=== PATIENT | female | born 1960 | race Caucasian/White ===

== ENCOUNTER → 2017-06-10 | Outpatient (CLI) | payer OTHER ==
[~2017-06-10] MED LIST: DEXA2TAB PO; DULO30CA2 PO; ERGO500017 PO; ESOM40CA PO; EXEN2VIA SQ; GABA300C10 PO; IBAN150T PO; INSU100C5 SQ-INSULIN; INSU300I SQ; LEVO50TA5 PO; NYST1000 PO; OXYC1TAB8 PO; OXYC5TAB3 PO; PAZO200T PO; PRAV80TA2 PO; PROC10TA78 PO
== END | disposition home or self-care (01) ==
LOC: CFH 11:14
PROVIDERS: ATTEND Internal Medicine Hematology & Oncology
DX: C64.9 Malignant neoplasm of unspecified kidney, except renal pelvis (principal)

== ENCOUNTER 2017-07-04 15:39 | Inpatient (IN) | payer OTHER ==
[~2017-07-04] VITALS: Ht 162.6 cm; Wt 61.0 kg
[2017-07-04] MEDS ORDERED: SODIUM CHLORIDE 0.9% 1,000 ML IV ONE (16:33)
[2017-07-04] MEDS ORDERED: SODIUM CHLORIDE 0.9% 1,000ML IVBOLUS ONE (17:00)
[2017-07-04] MEDS ORDERED: SODIUM CHLORIDE FLUSH 10ML SYR IVF ONE (17:00)
[2017-07-04 17:09] LABS: BASOPHILS # (AUTO) 0.03 x10^3/uL (0-0.1); BASOPHILS % (AUTO) 0 % (0-1); EOSINOPHILS # (AUTO) 0.19 x10^3/uL (0-0.4); EOSINOPHILS % (AUTO) 2 % (1-7); LYMPHOCYTES # (AUTO) 2.15 x10^3/uL (1-3.4); LYMPHOCYTES % (AUTO) 27 % (22-44); MD NO; MEAN CORPUSCULAR HEMOGLOBIN 27.8 pg (27.0-34.8); MEAN CORPUSCULAR HGB CONC 32.7 g/dL (32.4-35.8); MEAN CORPUSCULAR VOLUME 84.9 fL (80-100); MEAN PLATELET VOLUME 8.5 fL (7.4-10.4); MONOCYTES # (AUTO) 0.41 x10^3/uL (0.2-0.8); MONOCYTES % (AUTO) 5 % (2-9); NEUTROPHILS # (AUTO) 5.18 x10^3/uL (1.8-6.8); NEUTROPHILS % (AUTO) 65 % (42-75); PLATELET COUNT 232 x10^3/uL (130-400); RED BLOOD COUNT 5.63 x10^6/uL (3.82-5.3); RED CELL DISTRIBUTION WIDTH 19.5 % (9.6-15.2)
[2017-07-04 17:11] LABS: ALBUMIN 2.9 g/dL (3.4-5.0); ANION GAP 9 mmol/L (5-15); CALCIUM 8.6 mg/dL (8.5-10.1); CHLORIDE 106 mmol/L (98-107)
[2017-07-04 17:14] LABS: ALANINE AMINOTRANSFERASE 22 U/L (12-78); ALKALINE PHOSPHATASE 84 U/L (45-117); BILIRUBIN,TOTAL 0.5 mg/dL (0.2-1.0); CREATININE 0.77 mg/dL (0.55-1.02); TOTAL PROTEIN 7.4 g/dL (6.4-8.2)
[2017-07-04] MEDS ORDERED: POTASSIUM CHLORIDE 40 MEQ in SODIUM CHLORIDE 0.9% 1,000 ML IV ONE (17:21)
[2017-07-04] MEDS ORDERED: POTASSIUM CHLORIDE 20 MEQ TAB.ER.PRT PO ONE (17:30)
[2017-07-04] MEDS ORDERED: NS + 40MEQ KCL 1,000 ML IV ONE (17:31)
[2017-07-04] MEDS ORDERED: POTASSIUM CHLORIDE 20 MEQ TAB.ER.PRT ONE (17:31)
[2017-07-04 18:42] LABS: CLOSTRIDIUM DIFFICILE ANTIGEN NEGATIVE; CLOSTRIDIUM DIFFICILE TOXIN NEGATIVE (Negative)
[2017-07-04] MEDS ORDERED: OMNIPAQUE 350 MG/ML, 100ML BOTTLE ONE (19:14)
[2017-07-04] MEDS ORDERED: ACETAMINOPHEN 500 MG TABLET ONE (20:02)
[2017-07-04] MEDS ORDERED: POTASSIUM CHLORIDE 20 MEQ in SODIUM CHLORIDE 0.9% 1,000 ML IV ONE (20:26)
[2017-07-04] MEDS ORDERED: SODIUM CHLORIDE FLUSH 10ML SYR IVF PRN (20:30)
[2017-07-04] MEDS ORDERED: SORA200T PO (20:53)
[2017-07-04] MEDS ORDERED: OXYC10TA6 PO (20:53)
[2017-07-04] MEDS ORDERED: DIPH1TAB6 PO (20:53)
[2017-07-04] MEDS ORDERED: HYDR10TA4 PO (20:53)
[2017-07-04] MEDS ORDERED: ALBU2.5V11 NEB (20:53)
[2017-07-04] MEDS ORDERED: PRAV80TA2 PO (20:53)
[2017-07-04 21:31] VITALS: BP 170/84
[2017-07-04] MEDS ORDERED: SIMVASTATIN 40 MG TABLET PO SCH (22:00)
[2017-07-04] MEDS ORDERED: PROCHLORPERAZINE 10MG TABLET PO SCH (22:00)
[2017-07-04] MEDS ORDERED: NICOTINE 21 MG/24 HR PATCH.TD24 TD SCH (22:00)
[2017-07-04] MEDS ORDERED: ONDANSETRON 2MG/ML, 2ML IVPush PRN (22:00)
[2017-07-04] MEDS ORDERED: hydrOXyzine 10MG TABLET PO SCH (22:00)
[2017-07-04] MEDS ORDERED: DULOXETINE 30 MG CAPSULE.DR PO SCH (22:00)
[2017-07-04] MEDS ORDERED: ENOXAPARIN 40 MG/0.4 ML SQ SCH (22:00)
[2017-07-04] MEDS: NS + 20MEQ KCL 1,000 ML IV SCH (22:27)
[2017-07-04] MEDS ORDERED: PROCHLORPERAZINE MC SCH (22:30)
[2017-07-04] MEDS ORDERED: OXYcodone IR 5MG TABLET PO SCH (22:30)
[2017-07-04 22:48] LABS: MICROSCOPIC AUTO
[2017-07-04] MEDS: INSULIN LISPRO 100 UNITS/ML, PEN SQ-INSULIN SCH (22:49)
[2017-07-04] MEDS ORDERED: COMPAZINE MC SCH (23:00)
[2017-07-04] MEDS: GABAPENTIN 300 MG CAPSULE PO SCH (23:02)
[2017-07-04] MEDS: OCTREOTIDE 100MCG/ML, 1ML (0.1MG/ML) SQ SCH (23:02)
[2017-07-04 23:06] LABS: CULTURE INDICATED? YES
[2017-07-05] MEDS ORDERED: PROCHLORPERAZINE 10MG TABLET PO PRN
[2017-07-05 01:47] VITALS: BP 154/78
[2017-07-05 04:45] LABS: ANION GAP 6 mmol/L (5-15); BASOPHILS # (AUTO) 0.05 x10^3/uL (0-0.1); BASOPHILS % (AUTO) 1 % (0-1); CALCIUM 7.9 mg/dL (8.5-10.1); CHLORIDE 116 mmol/L (98-107); CREATININE 0.76 mg/dL (0.55-1.02); EOSINOPHILS # (AUTO) 0.19 x10^3/uL (0-0.4); EOSINOPHILS % (AUTO) 2 % (1-7); LYMPHOCYTES # (AUTO) 2.84 x10^3/uL (1-3.4); LYMPHOCYTES % (AUTO) 35 % (22-44); MD NO; MEAN CORPUSCULAR HEMOGLOBIN 28.4 pg (27.0-34.8); MEAN CORPUSCULAR HGB CONC 32.7 g/dL (32.4-35.8); MEAN CORPUSCULAR VOLUME 86.6 fL (80-100); MEAN PLATELET VOLUME 8.6 fL (7.4-10.4); MONOCYTES # (AUTO) 0.38 x10^3/uL (0.2-0.8); MONOCYTES % (AUTO) 5 % (2-9); NEUTROPHILS # (AUTO) 4.72 x10^3/uL (1.8-6.8); NEUTROPHILS % (AUTO) 58 % (42-75); PLATELET COUNT 216 x10^3/uL (130-400); RED BLOOD COUNT 5.45 x10^6/uL (3.82-5.3); RED CELL DISTRIBUTION WIDTH 19.1 % (9.6-15.2)
[2017-07-05] MEDS ORDERED: LEVOTHYROXINE 50 MCG TABLET PO SCH (06:00)
[2017-07-05] MEDS ORDERED: PANTOPROZOLE 40MG TABLET PO SCH (07:30)
[2017-07-05] MEDS ORDERED: MAGNESIUM SULFATE PMX 4GM/100M 100 ML IV ONE (07:30)
[2017-07-05] MEDS ORDERED: OXYcodone IR 5MG TABLET ONE (07:36)
[2017-07-05] MEDS: GABAPENTIN 300 MG CAPSULE PO SCH (07:39)
[2017-07-05] MEDS: INSULIN LISPRO 100 UNITS/ML, PEN SQ-INSULIN SCH ×2 (08:09→12:12)
[2017-07-05] MEDS: NS + 20MEQ KCL 1,000 ML IV SCH ×2 (08:19→13:35)
[2017-07-05] MEDS ORDERED: DIPHENOXYLATE/ATROPINE TABLET PO SCH (09:00)
[2017-07-05] MEDS ORDERED: OXYcodone IR 5MG TABLET PO SCH ×2 (09:00→13:30)
[2017-07-05 09:01] VITALS: BP 154/79
[2017-07-05] MEDS ORDERED: POTA20TA14 PO (09:17)
[2017-07-05] MEDS ORDERED: OCTR100V SQ (09:17)
[2017-07-05] MEDS ORDERED: MAGN400T26 PO (09:17)
[2017-07-05] MEDS: OCTREOTIDE 100MCG/ML, 1ML (0.1MG/ML) SQ SCH ×2 (09:57→15:22)
[2017-07-05 14:15] VITALS: BP 128/69
== END 2017-07-05 15:30 | disposition home or self-care (01) | DRG 392 ==
LOC: ED 18:21 → EDIP 20:27 → 3NW 21:08
PROVIDERS: ADMIT Internal Medicine; ATTEND Internal Medicine
DX: K52.9 Noninfective gastroenteritis and colitis, unspecified (principal); E87.2 Acidosis; E44.0 Moderate protein-calorie malnutrition; C64.9 Malignant neoplasm of unspecified kidney, except renal pelvis; E83.42 Hypomagnesemia; N39.0 Urinary tract infection, site not specified; I11.9 Hypertensive heart disease without heart failure; E03.9 Hypothyroidism, unspecified; E11.9 Type 2 diabetes mellitus without complications; E87.6 Hypokalemia; F17.210 Nicotine dependence, cigarettes, uncomplicated; I16.0 Hypertensive urgency; J44.9 Chronic obstructive pulmonary disease, unspecified; K21.9 Gastro-esophageal reflux disease without esophagitis; Z79.4 Long term (current) use of insulin; Z82.5 Family history of asthma and other chronic lower respiratory diseases; Z83.3 Family history of diabetes mellitus; Z85.528 Personal history of other malignant neoplasm of kidney; Z90.710 Acquired absence of both cervix and uterus; Z68.23 Body mass index [BMI] 23.0-23.9, adult
CPT/HCPCS: 36415; 74177; 80048; 80053; 81001; 82962; 83605; 83690; 83735; 84132; 85025; 87040; 87077; 87086; 87186; 87324; 89055; 99285; J1650; J2354; J3480; Q9967; J1815; J3475; J7030

== ENCOUNTER 2017-07-07 11:50 | Inpatient (IN) | payer OTHER ==
[~2017-07-07] VITALS: Ht 162.6 cm; Wt 62.1 kg
[~2017-07-07 11:50] MED LIST changes: +ALBU2.5V11 NEB; +DIPH1TAB6 PO; +HYDR10TA4 PO; +MAGN400T26 PO; +OCTR100V SQ; +OXYC10TA6 PO; +POTA20TA14 PO; +SORA200T PO
[2017-07-07] MEDS ORDERED: SODIUM CHLORIDE 0.9% 1,000 ML IV ONE ×2 (12:21→14:24)
[2017-07-07] MEDS ORDERED: ACETAMINOPHEN 325 MG TABLET PO ONE (12:30)
[2017-07-07] MEDS ORDERED: SODIUM CHLORIDE 0.9% 1,000ML IVBOLUS ONE ×2 (12:30)
[2017-07-07] MEDS ORDERED: SODIUM CHLORIDE FLUSH 10ML SYR IVF ONE (12:30)
[2017-07-07] MEDS ORDERED: ACETAMINOPHEN 325 MG TABLET ONE (12:34)
[2017-07-07 13:00] LABS: RAPID INFLUENZA A Negative (Negative); RAPID INFLUENZA B Negative (Negative)
[2017-07-07 13:06] LABS: MEAN CORPUSCULAR HGB CONC 32.7 g/dL (32.4-35.8); MEAN CORPUSCULAR VOLUME 85.8 fL (80-100); MEAN PLATELET VOLUME 8.5 fL (7.4-10.4); PLATELET COUNT 226 x10^3/uL (130-400); RED BLOOD COUNT 5.57 x10^6/uL (3.82-5.3); RED CELL DISTRIBUTION WIDTH 18.5 % (9.6-15.2)
[2017-07-07 13:13] LABS: ALBUMIN 2.8 g/dL (3.4-5.0); ANION GAP 10 mmol/L (5-15); CALCIUM 8.7 mg/dL (8.5-10.1); CHLORIDE 104 mmol/L (98-107)
[2017-07-07 13:16] LABS: ALANINE AMINOTRANSFERASE 17 U/L (12-78); CREATININE 0.84 mg/dL (0.55-1.02)
[2017-07-07 13:18] LABS: ALKALINE PHOSPHATASE 83 U/L (45-117); BILIRUBIN,TOTAL 0.7 mg/dL (0.2-1.0); TOTAL PROTEIN 7.2 g/dL (6.4-8.2)
[2017-07-07 13:23] LABS: MD YES
[2017-07-07 13:24] LABS: BAND#(MANUAL) 0.49 x10^3/uL; BANDS%(MANUAL) 4 % (0-7); MONOS#(MANUAL) 0.37 x10^3/uL (0.3-2.7); MONOS% (MANUAL) 3 % (2-9)
[2017-07-07 13:25] LABS: ANISOCYTOSIS 1+; LYMPH#(MANUAL) 1.46 x10^3/uL (1-3.4); LYMPHS% (MANUAL) 12 % (22-44); SEG#(MANUAL) 9.88 x10^3/uL (1.8-6.8); SEGS% (MANUAL) 81 % (42-75)
[2017-07-07 13:26] LABS: <PLATELET ESTIMATE> ADEQUATE; <PLT MORPHOLOGY> NORMAL PLT MORPH
[2017-07-07] MEDS ORDERED: CEFTRIAXONE PMX 1GM/50ML 50 ML IVPB ONE (14:00)
[2017-07-07] MEDS ORDERED: AZITHROMYCIN 500 MG in SODIUM CHLORIDE 0.9% 250 ML IVPB ONE (14:00)
[2017-07-07] MEDS: SODIUM CHLORIDE 0.9% 1,000 ML IV SCH ×2 (14:29→23:10)
[2017-07-07] MEDS ORDERED: LABETALOL 5MG/ML, 20ML IVPush PRN (14:30)
[2017-07-07] MEDS ORDERED: ENALAPRILAT 1.25 MG/ML, 2ML IVPush PRN (14:30)
[2017-07-07] MEDS ORDERED: SODIUM CHLORIDE FLUSH 10ML SYR IVF PRN (14:30)
[2017-07-07] MEDS ORDERED: ACETAMINOPHEN 325 MG TABLET PO PRN (14:30)
[2017-07-07] MEDS ORDERED: ONDANSETRON 2MG/ML, 2ML IVPush PRN (14:30)
[2017-07-07] MEDS ORDERED: ONDANSETRON ODT 4 MG PO PRN (14:30)
[2017-07-07] MEDS ORDERED: GUAIFENESIN/DM 200-20MG, 10ML UDC PO PRN (14:30)
[2017-07-07 15:14] LABS: MEAN CORPUSCULAR HGB CONC 32.7 g/dL (32.4-35.8); MEAN CORPUSCULAR VOLUME 85.7 fL (80-100); MEAN PLATELET VOLUME 8.1 fL (7.4-10.4); PLATELET COUNT 213 x10^3/uL (130-400); RED BLOOD COUNT 5.32 x10^6/uL (3.82-5.3); RED CELL DISTRIBUTION WIDTH 18.2 % (9.6-15.2)
[2017-07-07 15:50] LABS: MD YES
[2017-07-07 15:52] LABS: <PLATELET ESTIMATE> ADEQUATE; <PLT MORPHOLOGY> NORMAL PLT MORPH; ANISOCYTOSIS 1+; BANDS%(MANUAL) 5 % (0-7); LYMPH#(MANUAL) 0.84 x10^3/uL (1-3.4); LYMPHS% (MANUAL) 6 % (22-44); MONOS#(MANUAL) 0.42 x10^3/uL (0.3-2.7); MONOS% (MANUAL) 3 % (2-9); SEG#(MANUAL) 12.04 x10^3/uL (1.8-6.8); SEGS% (MANUAL) 86 % (42-75)
[2017-07-07 16:11] VITALS: BP 110/65
[2017-07-07] MEDS: OXYcodone IR 5MG TABLET PO SCH (16:21)
[2017-07-07] MEDS: NICOTINE 14MG/24 HR PATCH.TD24 TD SCH (16:21)
[2017-07-07] MEDS: HEPARIN 5,000 UNITS/ML, 1ML SQ SCH ×2 (16:21→23:10)
[2017-07-07] MEDS: GABAPENTIN 300 MG CAPSULE PO SCH ×2 (16:21→20:10)
[2017-07-07] MEDS: INSULIN LISPRO 100 UNITS/ML, PEN SQ-INSULIN SCH ×2 (16:24→20:58)
[2017-07-07] MEDS: CEFTRIAXONE PMX 1GM/50ML 50 ML IV SCH (17:16)
[2017-07-07] MEDS: AZITHROMYCIN 500 MG in SODIUM CHLORIDE 0.9% 250 ML IV SCH (18:15)
[2017-07-07 19:36] VITALS: BP 124/72
[2017-07-07] MEDS: PRAVASTATIN 40 MG TABLET PO SCH (20:10)
[2017-07-07] MEDS: DULOXETINE 30 MG CAPSULE.DR PO SCH (20:10)
[2017-07-08 01:37] VITALS: BP 120/62
[2017-07-08 04:42] LABS: HEMOGLOBIN A1C 6.4 % (4.2-6.3)
[2017-07-08 05:03] LABS: ANION GAP 7 mmol/L (5-15); CALCIUM 7.9 mg/dL (8.5-10.1); CHLORIDE 113 mmol/L (98-107)
[2017-07-08] MEDS ORDERED: MAGNESIUM SULFATE PMX 2GM/50ML 50 ML IV ONE (07:00)
[2017-07-08] MEDS: INSULIN LISPRO 100 UNITS/ML, PEN SQ-INSULIN SCH ×4 (07:00→20:23)
[2017-07-08 08:30] VITALS: BP 127/72
[2017-07-08] MEDS: SODIUM CHLORIDE 0.9% 1,000 ML IV SCH (09:13)
[2017-07-08] MEDS: POTASSIUM CHLORIDE 20 MEQ TAB.ER.PRT PO SCH ×2 (09:13→16:52)
[2017-07-08] MEDS: HEPARIN 5,000 UNITS/ML, 1ML SQ SCH ×2 (09:14→16:52)
[2017-07-08] MEDS: LEVOTHYROXINE 50 MCG TABLET PO SCH (09:14)
[2017-07-08] MEDS: hydrOXyzine 10MG TABLET PO SCH (09:14)
[2017-07-08] MEDS: MAGNESIUM OXIDE 400 MG TABLET PO SCH (09:14)
[2017-07-08] MEDS: GABAPENTIN 300 MG CAPSULE PO SCH ×3 (09:14→20:22)
[2017-07-08] MEDS: OXYcodone IR 5MG TABLET PO SCH ×2 (09:15→17:01)
[2017-07-08] MEDS: ALBUTEROL SULFATE 2.5 MG/3 ML NPPB PRN (09:58)
[2017-07-08] MEDS ORDERED: AZITHROMYCIN 500 MG in SODIUM CHLORIDE 0.9% 250 ML IV SCH (12:00)
[2017-07-08] MEDS ORDERED: CEFTRIAXONE PMX 1GM/50ML 50 ML IV SCH (12:00)
[2017-07-08] MEDS: NICOTINE 14MG/24 HR PATCH.TD24 TD SCH (14:07)
[2017-07-08 14:30] VITALS: BP 101/57
[2017-07-08] MEDS: CEFTRIAXONE PMX 1GM/50ML 50 ML IV SCH (16:53)
[2017-07-08] MEDS: AZITHROMYCIN 500 MG in SODIUM CHLORIDE 0.9% 250 ML IV SCH (18:13)
[2017-07-08 20:08] VITALS: BP 112/62
[2017-07-08] MEDS: GUAIFENESIN ER 600 MG TABLET PO SCH (20:22)
[2017-07-08] MEDS: PRAVASTATIN 40 MG TABLET PO SCH (20:22)
[2017-07-08] MEDS: DULOXETINE 30 MG CAPSULE.DR PO SCH (20:23)
[2017-07-09 00:07] VITALS: BP 102/61
[2017-07-09] MEDS: HEPARIN 5,000 UNITS/ML, 1ML SQ SCH ×4 (00:14→23:19)
[2017-07-09] MEDS: OXYcodone IR 5MG TABLET PO SCH ×4 (00:18→22:00)
[2017-07-09 04:53] LABS: ANION GAP 6 mmol/L (5-15); CALCIUM 8.6 mg/dL (8.5-10.1); CHLORIDE 111 mmol/L (98-107)
[2017-07-09 04:54] LABS: CREATININE 0.78 mg/dL (0.55-1.02)
[2017-07-09 04:59] LABS: BASOPHILS # (AUTO) 0.04 x10^3/uL (0-0.1); BASOPHILS % (AUTO) 1 % (0-1); EOSINOPHILS # (AUTO) 0.22 x10^3/uL (0-0.4); EOSINOPHILS % (AUTO) 3 % (1-7); LYMPHOCYTES # (AUTO) 2.42 x10^3/uL (1-3.4); LYMPHOCYTES % (AUTO) 29 % (22-44); MD NO; MEAN CORPUSCULAR HEMOGLOBIN 28.4 pg (27.0-34.8); MEAN CORPUSCULAR HGB CONC 32.8 g/dL (32.4-35.8); MEAN CORPUSCULAR VOLUME 86.8 fL (80-100); MEAN PLATELET VOLUME 8.6 fL (7.4-10.4); MONOCYTES # (AUTO) 0.31 x10^3/uL (0.2-0.8); MONOCYTES % (AUTO) 4 % (2-9); NEUTROPHILS # (AUTO) 5.32 x10^3/uL (1.8-6.8); NEUTROPHILS % (AUTO) 64 % (42-75); PLATELET COUNT 209 x10^3/uL (130-400); RED BLOOD COUNT 4.43 x10^6/uL (3.82-5.3); RED CELL DISTRIBUTION WIDTH 19.1 % (9.6-15.2)
[2017-07-09] MEDS: INSULIN LISPRO 100 UNITS/ML, PEN SQ-INSULIN SCH ×4 (07:00→20:20)
[2017-07-09 08:30] VITALS: BP 101/62
[2017-07-09] MEDS: hydrOXyzine 10MG TABLET PO SCH (09:20)
[2017-07-09] MEDS: GUAIFENESIN ER 600 MG TABLET PO SCH ×2 (09:20→20:20)
[2017-07-09] MEDS: MAGNESIUM OXIDE 400 MG TABLET PO SCH (09:20)
[2017-07-09] MEDS: GABAPENTIN 300 MG CAPSULE PO SCH ×3 (09:20→20:20)
[2017-07-09] MEDS: POTASSIUM CHLORIDE 20 MEQ TAB.ER.PRT PO SCH ×2 (09:20→17:00)
[2017-07-09] MEDS: LEVOTHYROXINE 50 MCG TABLET PO SCH (09:21)
[2017-07-09] MEDS: predniSONE 50MG TABLET PO SCH (13:37)
[2017-07-09] MEDS: NICOTINE 14MG/24 HR PATCH.TD24 TD SCH (13:37)
[2017-07-09] MEDS ORDERED: CEFTRIAXONE PMX 1GM/50ML 50 ML IV SCH (14:00)
[2017-07-09 14:30] VITALS: BP 110/70
[2017-07-09] MEDS ORDERED: POTASSIUM CHLORIDE 20 MEQ TAB.ER.PRT PO ONE (14:30)
[2017-07-09] MEDS ORDERED: CEFTRIAXONE PMX 2GM/50ML 50 ML IV SCH (14:30)
[2017-07-09] MEDS ORDERED: CEFTRIAXONE PMX 1GM/50ML 50 ML IV ONE (15:00)
[2017-07-09] MEDS: ALBUTEROL SULFATE 2.5 MG/3 ML NPPB PRN (17:23)
[2017-07-09] MEDS: AZITHROMYCIN 500 MG in SODIUM CHLORIDE 0.9% 250 ML IV SCH (17:41)
[2017-07-09 19:57] VITALS: BP 110/67
[2017-07-09] MEDS: DULOXETINE 30 MG CAPSULE.DR PO SCH (20:20)
[2017-07-09] MEDS: PRAVASTATIN 40 MG TABLET PO SCH (20:20)
[2017-07-10 03:29] VITALS: BP 113/70
[2017-07-10 04:29] LABS: BASOPHILS # (AUTO) 0.01 x10^3/uL (0-0.1); BASOPHILS % (AUTO) 0 % (0-1); EOSINOPHILS % (AUTO) 0 % (1-7); LYMPHOCYTES # (AUTO) 0.94 x10^3/uL (1-3.4); LYMPHOCYTES % (AUTO) 17 % (22-44); MD NO; MEAN CORPUSCULAR HEMOGLOBIN 27.5 pg (27.0-34.8); MEAN CORPUSCULAR HGB CONC 31.9 g/dL (32.4-35.8); MEAN CORPUSCULAR VOLUME 86.3 fL (80-100); MONOCYTES # (AUTO) 0.21 x10^3/uL (0.2-0.8); MONOCYTES % (AUTO) 4 % (2-9); NEUTROPHILS # (AUTO) 4.36 x10^3/uL (1.8-6.8); NEUTROPHILS % (AUTO) 79 % (42-75); PLATELET COUNT 219 x10^3/uL (130-400); RED BLOOD COUNT 4.64 x10^6/uL (3.82-5.3); RED CELL DISTRIBUTION WIDTH 18.9 % (9.6-15.2)
[2017-07-10 04:39] LABS: ALBUMIN 2.2 g/dL (3.4-5.0); ANION GAP 7 mmol/L (5-15); CALCIUM 8.8 mg/dL (8.5-10.1); CHLORIDE 113 mmol/L (98-107); CREATININE 0.88 mg/dL (0.55-1.02)
[2017-07-10] MEDS: LEVOTHYROXINE 50 MCG TABLET PO SCH (05:34)
[2017-07-10] MEDS: OXYcodone IR 5MG TABLET PO SCH ×3 (05:34→20:29)
[2017-07-10 07:28] VITALS: BP 135/65
[2017-07-10] MEDS: GUAIFENESIN ER 600 MG TABLET PO SCH ×2 (07:58→20:28)
[2017-07-10] MEDS: predniSONE 50MG TABLET PO SCH (07:58)
[2017-07-10] MEDS: GABAPENTIN 300 MG CAPSULE PO SCH ×3 (07:58→20:28)
[2017-07-10] MEDS: POTASSIUM CHLORIDE 20 MEQ TAB.ER.PRT PO SCH (07:58)
[2017-07-10] MEDS: hydrOXyzine 10MG TABLET PO SCH (07:58)
[2017-07-10] MEDS: MAGNESIUM OXIDE 400 MG TABLET PO SCH (07:58)
[2017-07-10] MEDS: HEPARIN 5,000 UNITS/ML, 1ML SQ SCH ×3 (07:58→23:45)
[2017-07-10] MEDS: INSULIN LISPRO 100 UNITS/ML, PEN SQ-INSULIN SCH ×5 (07:59→20:36)
[2017-07-10] MEDS ORDERED: SODIUM PHOSPHATE 30 MMOL in SODIUM CHLORIDE 0.9% 500 ML IV ONE (08:30)
[2017-07-10] MEDS ORDERED: SODIUM PHOSPHATE 4 MEQ/ML IV SCH (08:30)
[2017-07-10 13:27] VITALS: BP 117/64
[2017-07-10] MEDS: NICOTINE 14MG/24 HR PATCH.TD24 TD SCH (14:26)
[2017-07-10] MEDS ORDERED: CALCIUM CARBONATE 500 MG TAB.CHEW PO PRN (15:00)
[2017-07-10] MEDS: AZITHROMYCIN 500 MG in SODIUM CHLORIDE 0.9% 250 ML IV SCH (17:22)
[2017-07-10 19:33] VITALS: BP 121/64
[2017-07-10] MEDS: PRAVASTATIN 40 MG TABLET PO SCH (20:28)
[2017-07-10] MEDS: DULOXETINE 30 MG CAPSULE.DR PO SCH (20:28)
[2017-07-11] MEDS: OXYcodone IR 5MG TABLET PO SCH ×2 (02:39→08:58)
[2017-07-11 02:40] VITALS: BP 149/68
[2017-07-11 04:42] LABS: BASOPHILS # (AUTO) 0.03 x10^3/uL (0-0.1); BASOPHILS % (AUTO) 0 % (0-1); EOSINOPHILS # (AUTO) 0.01 x10^3/uL (0-0.4); EOSINOPHILS % (AUTO) 0 % (1-7); LYMPHOCYTES # (AUTO) 2.26 x10^3/uL (1-3.4); LYMPHOCYTES % (AUTO) 25 % (22-44); MD NO; MEAN CORPUSCULAR HGB CONC 32.5 g/dL (32.4-35.8); MEAN PLATELET VOLUME 8.9 fL (7.4-10.4); MONOCYTES # (AUTO) 0.43 x10^3/uL (0.2-0.8); MONOCYTES % (AUTO) 5 % (2-9); NEUTROPHILS # (AUTO) 6.33 x10^3/uL (1.8-6.8); NEUTROPHILS % (AUTO) 70 % (42-75); PLATELET COUNT 248 x10^3/uL (130-400); RED BLOOD COUNT 4.64 x10^6/uL (3.82-5.3); RED CELL DISTRIBUTION WIDTH 18.6 % (9.6-15.2)
[2017-07-11 04:56] LABS: CALCIUM 9.4 mg/dL (8.5-10.1); CHLORIDE 109 mmol/L (98-107)
[2017-07-11 05:04] LABS: ALANINE AMINOTRANSFERASE 23 U/L (12-78); ALBUMIN 2.3 g/dL (3.4-5.0); ALKALINE PHOSPHATASE 88 U/L (45-117); ANION GAP 7 mmol/L (5-15); BILIRUBIN,TOTAL 0.2 mg/dL (0.2-1.0); CREATININE 0.72 mg/dL (0.55-1.02); TOTAL PROTEIN 6.2 g/dL (6.4-8.2)
[2017-07-11] MEDS: LEVOTHYROXINE 50 MCG TABLET PO SCH (06:51)
[2017-07-11] MEDS: INSULIN LISPRO 100 UNITS/ML, PEN SQ-INSULIN SCH ×2 (07:00→11:06)
[2017-07-11 07:45] VITALS: BP 147/75
[2017-07-11] MEDS: MAGNESIUM OXIDE 400 MG TABLET PO SCH (07:50)
[2017-07-11] MEDS: predniSONE 50MG TABLET PO SCH (07:50)
[2017-07-11] MEDS: hydrOXyzine 10MG TABLET PO SCH (07:50)
[2017-07-11] MEDS: GUAIFENESIN ER 600 MG TABLET PO SCH (07:51)
[2017-07-11] MEDS: GABAPENTIN 300 MG CAPSULE PO SCH (07:51)
[2017-07-11] MEDS: HEPARIN 5,000 UNITS/ML, 1ML SQ SCH (07:51)
[2017-07-11] MEDS ORDERED: DOXY100T PO (09:39)
[2017-07-11] MEDS ORDERED: CEFD300C37 PO (09:39)
[2017-07-11] MEDS ORDERED: PRED50TA PO (09:44)
[2017-07-11] MEDS ORDERED: PNEUMOCOCCAL 23 VACCINE IM-VACC ONE (11:00)
[2017-07-11] MEDS ORDERED: CEFTRIAXONE PMX 2GM/50ML 50 ML IV SCH (11:00)
== END 2017-07-11 13:25 | disposition home or self-care (01) | DRG 871 ==
LOC: ED 12:15 → EDIP 14:24 → 3NW 15:22
PROVIDERS: ADMIT Hospitalist; ATTEND Hospitalist
DX: A41.9 Sepsis, unspecified organism (principal); J15.9 Unspecified bacterial pneumonia; J96.91 Respiratory failure, unspecified with hypoxia; R65.21 Severe sepsis with septic shock; C79.51 Secondary malignant neoplasm of bone; E83.39 Other disorders of phosphorus metabolism; I11.9 Hypertensive heart disease without heart failure; F33.9 Major depressive disorder, recurrent, unspecified; J44.0 Chronic obstructive pulmonary disease with (acute) lower respiratory infection; E11.65 Type 2 diabetes mellitus with hyperglycemia; I48.2 Chronic atrial fibrillation; E83.42 Hypomagnesemia; M54.5 Low back pain; E03.9 Hypothyroidism, unspecified; E87.6 Hypokalemia; K21.9 Gastro-esophageal reflux disease without esophagitis; K52.9 Noninfective gastroenteritis and colitis, unspecified; Z79.4 Long term (current) use of insulin; Z82.5 Family history of asthma and other chronic lower respiratory diseases; Z83.3 Family history of diabetes mellitus; Z85.528 Personal history of other malignant neoplasm of kidney; Z90.5 Acquired absence of kidney; Z90.710 Acquired absence of both cervix and uterus; Z79.899 Other long term (current) drug therapy
CPT/HCPCS: 36415; 71045; 71046; 80048; 80053; 82040; 82962; 83036; 83605; 83735; 84100; 84145; 85025; 87040; 87070; 87077; 87184; 87205; 87400; 90732; 93005; 94640; 96360; 96361; J0456; J0696; J1644; J7613; J1815; J3475; J7030; J7040; J7050; J7512

== ENCOUNTER → 2017-08-19 | Outpatient (CLI) | payer OTHER ==
[~2017-08-19] MED LIST changes: +CEFD300C37 PO; +DOXY100T PO; +GADOBUTROL 7.5 MMOL/7.5 ML PFS ONE; +PRED50TA PO
== END | disposition home or self-care (01) ==
LOC: CFH 08:01
PROVIDERS: ATTEND Internal Medicine Hematology & Oncology
DX: C79.51 Secondary malignant neoplasm of bone (principal); C64.9 Malignant neoplasm of unspecified kidney, except renal pelvis; K52.9 Noninfective gastroenteritis and colitis, unspecified; J18.9 Pneumonia, unspecified organism; R15.9 Full incontinence of feces; E87.6 Hypokalemia
CPT/HCPCS: 71046; 72158; 74018; A9585

== ENCOUNTER → 2017-09-02 | Outpatient (CLI) | payer OTHER ==
[~2017-09-02] MED LIST changes: -GADOBUTROL 7.5 MMOL/7.5 ML PFS ONE
== END ==
LOC: ROC 08:32
PROVIDERS: ATTEND Radiology Radiation Oncology
DX: Z08 Encounter for follow-up examination after completed treatment for malignant neoplasm (principal); C79.51 Secondary malignant neoplasm of bone; Z85.528 Personal history of other malignant neoplasm of kidney; Z92.3 Personal history of irradiation; Z79.4 Long term (current) use of insulin
CPT/HCPCS: 99214; G0463

== ENCOUNTER → 2017-11-04 | Outpatient (CLI) | payer OTHER ==
[~2017-11-04] MED LIST changes: +ACID1TAB7 PO; +CEFT2PIG2 IV; +DEXA4TAB66 PO; +INSU100I11 SQ-INSULIN; +INSU100I13 SQ-INSULIN; +MORP15TA3 PO; +NICO-486 TD
== END | disposition home or self-care (01) ==
LOC: RAD 10:07
PROVIDERS: ATTEND Internal Medicine Hematology & Oncology
DX: I82.412 Acute embolism and thrombosis of left femoral vein (principal); C64.9 Malignant neoplasm of unspecified kidney, except renal pelvis
CPT/HCPCS: 93970

== ENCOUNTER 2017-11-22 12:51 | Inpatient (IN) | payer OTHER ==
[~2017-11-22] VITALS: Ht 162.6 cm; Wt 73.5 kg
[2017-11-22] MEDS ORDERED: MORPHINE SULFATE 4 MG/ML, 1ML ONE (13:35)
[2017-11-22] MEDS: MORPHINE SULFATE 4 MG/ML, 1ML IVPush PRN (13:44)
[2017-11-22 13:54] LABS: BASOPHILS # (AUTO) 0.03 x10^3/uL (0-0.1); BASOPHILS % (AUTO) 0 % (0-1); EOSINOPHILS # (AUTO) 0.08 x10^3/uL (0-0.4); EOSINOPHILS % (AUTO) 1 % (1-7); LYMPHOCYTES # (AUTO) 2.01 x10^3/uL (1-3.4); LYMPHOCYTES % (AUTO) 27 % (22-44); MD NO; MEAN CORPUSCULAR HEMOGLOBIN 29.7 pg (27.0-34.8); MEAN CORPUSCULAR HGB CONC 33.1 g/dL (32.4-35.8); MEAN CORPUSCULAR VOLUME 89.8 fL (80-100); MEAN PLATELET VOLUME 7.3 fL (7.4-10.4); MONOCYTES # (AUTO) 0.27 x10^3/uL (0.2-0.8); MONOCYTES % (AUTO) 4 % (2-9); NEUTROPHILS # (AUTO) 4.99 x10^3/uL (1.8-6.8); NEUTROPHILS % (AUTO) 68 % (42-75); PLATELET COUNT 272 x10^3/uL (130-400); RED BLOOD COUNT 5.25 x10^6/uL (3.82-5.3); RED CELL DISTRIBUTION WIDTH 19.3 % (9.6-15.2)
[2017-11-22 14:01] LABS: ANION GAP 9 mmol/L (5-15); CALCIUM 8.6 mg/dL (8.5-10.1); CHLORIDE 108 mmol/L (98-107); CREATININE 0.63 mg/dL (0.55-1.02); INTERNATIONAL NORMALIZED RATIO 1.11 (0.93-1.1); PROTHROMBIN TIME 11.4 Seconds (9.6-11.5)
[2017-11-22] MEDS ORDERED: SODIUM CHLORIDE FLUSH 10ML SYR IVF ONE (14:30)
[2017-11-22] MEDS ORDERED: INSU100C5 SQ-INSULIN (14:54)
[2017-11-22] MEDS ORDERED: OXYC10TA6 PO (14:57)
[2017-11-22] MEDS ORDERED: RIVA15TA PO (14:57)
[2017-11-22] MEDS ORDERED: OMEP40CA6 PO (14:57)
[2017-11-22 15:56] VITALS: BP 135/87
[2017-11-22] MEDS ORDERED: HEPARIN 5,000 UNITS/ML, 1ML SQ SCH (16:00)
[2017-11-22] MEDS ORDERED: ONDANSETRON 2MG/ML, 2ML IVPush PRN (16:00)
[2017-11-22] MEDS ORDERED: ONDANSETRON ODT 4 MG PO PRN (16:00)
[2017-11-22] MEDS ORDERED: LABETALOL 5MG/ML, 20ML IVPush PRN (16:00)
[2017-11-22] MEDS ORDERED: HEPARIN 25,000 UNITS/500ML PMX 500 ML IV PRN ×2 (16:00→16:30)
[2017-11-22] MEDS ORDERED: HEPARIN 5,000 UNITS/ML, 1ML IV PRN ×2 (16:30→18:00)
[2017-11-22] MEDS ORDERED: HEPARIN 5,000 UNITS/ML, 1ML IV ONE ×2 (16:30→18:00)
[2017-11-22] MEDS: GABAPENTIN 300 MG CAPSULE PO SCH ×2 (16:53→22:22)
[2017-11-22 17:00] VITALS: BP 135/87
[2017-11-22] MEDS ORDERED: ALBUTEROL SULFATE 2.5 MG/3 ML NPPB PRN (17:00)
[2017-11-22 17:10] LABS: FREE T4 (FREE THYROXINE) 1.15 ng/dL (0.76-1.46)
[2017-11-22] MEDS ORDERED: D5%-0.45% NACL 1,000 ML IV SCH (17:30)
[2017-11-22] MEDS: HEPARIN 25,000 UNITS/500ML PMX 500 ML IV PRN (18:25)
[2017-11-22 19:39] VITALS: BP 108/72
[2017-11-22] MEDS ORDERED: TEMPLATE NON-FORMULARY MED. (Oxycodone Hcl** 10 MG) PO SCH (21:00)
[2017-11-22] MEDS ORDERED: INSULIN GLARGINE 100 UNITS/ML, PEN SQ-INSULIN SCH (21:00)
[2017-11-22] MEDS ORDERED: RIVAROXABAN 15 MG TABLET PO SCH (21:00)
[2017-11-22] MEDS: DULOXETINE 30 MG CAPSULE.DR PO SCH (22:21)
[2017-11-22] MEDS: INSULIN GLARGINE 100 UNITS/ML, PEN SQ-INSULIN SCH (22:21)
[2017-11-22] MEDS: SIMVASTATIN 40 MG TABLET PO SCH (22:22)
[2017-11-23] MEDS: MORPHINE SULFATE 4 MG/ML, 1ML IVPush PRN ×2 (00:02→09:25)
[2017-11-23 00:22] LABS: HEMOGLOBIN A1C 9.8 % (4.2-6.3)
[2017-11-23 02:00] VITALS: BP 111/75
[2017-11-23 05:18] LABS: MICROSCOPIC AUTO
[2017-11-23 05:19] LABS: CULTURE INDICATED? NO
[2017-11-23 06:46] LABS: BASOPHILS # (AUTO) 0.03 x10^3/uL (0-0.1); BASOPHILS % (AUTO) 0 % (0-1); EOSINOPHILS # (AUTO) 0.07 x10^3/uL (0-0.4); EOSINOPHILS % (AUTO) 1 % (1-7); LYMPHOCYTES # (AUTO) 1.73 x10^3/uL (1-3.4); LYMPHOCYTES % (AUTO) 26 % (22-44); MD NO; MEAN CORPUSCULAR HEMOGLOBIN 29.7 pg (27.0-34.8); MEAN CORPUSCULAR HGB CONC 33.2 g/dL (32.4-35.8); MEAN CORPUSCULAR VOLUME 89.7 fL (80-100); MEAN PLATELET VOLUME 6.8 fL (7.4-10.4); MONOCYTES # (AUTO) 0.22 x10^3/uL (0.2-0.8); MONOCYTES % (AUTO) 3 % (2-9); NEUTROPHILS # (AUTO) 4.52 x10^3/uL (1.8-6.8); NEUTROPHILS % (AUTO) 69 % (42-75); PLATELET COUNT 269 x10^3/uL (130-400); RED BLOOD COUNT 5.02 x10^6/uL (3.82-5.3); RED CELL DISTRIBUTION WIDTH 20.6 % (9.6-15.2)
[2017-11-23 06:58] LABS: ALANINE AMINOTRANSFERASE 106 U/L (12-78); ALBUMIN 1.7 g/dL (3.4-5.0); ANION GAP 7 mmol/L (5-15); CALCIUM 8.1 mg/dL (8.5-10.1); CHLORIDE 111 mmol/L (98-107); CREATININE 0.43 mg/dL (0.55-1.02)
[2017-11-23 07:09] LABS: ALKALINE PHOSPHATASE 139 U/L (45-117); BILIRUBIN,TOTAL 0.3 mg/dL (0.2-1.0); TOTAL PROTEIN 5.9 g/dL (6.4-8.2)
[2017-11-23 07:11] VITALS: BP 119/77
[2017-11-23] MEDS ORDERED: LIDOCAINE-MPF 1%, 2ML ONE (08:56)
[2017-11-23] MEDS: INSULIN GLARGINE 100 UNITS/ML, PEN SQ-INSULIN SCH ×2 (09:00→21:49)
[2017-11-23] MEDS ORDERED: MORPHINE SULFATE 4 MG/ML, 1ML ONE (09:20)
[2017-11-23] MEDS ORDERED: GADOBUTROL 7.5 MMOL/7.5 ML VIAL ONE (09:43)
[2017-11-23] MEDS: CHOLESTYRAMINE LIGHT 4GM PACKET PO SCH (12:10)
[2017-11-23] MEDS: OMEPRAZOLE 20 MG CAPSULE.DR PO SCH (12:10)
[2017-11-23] MEDS: GABAPENTIN 300 MG CAPSULE PO SCH ×3 (12:10→21:47)
[2017-11-23 12:12] VITALS: BP 137/82
[2017-11-23] MEDS ORDERED: DEXTROSE 4 GM TAB.CHEW PO PRN (13:30)
[2017-11-23] MEDS ORDERED: DEXTROSE 50%, 50ML SYRINGE IVPush PRN (13:30)
[2017-11-23] MEDS ORDERED: GLUCAGON 1 MG IM PRN (13:30)
[2017-11-23] MEDS: NICOTINE 14MG/24 HR PATCH.TD24 TD SCH (14:50)
[2017-11-23] MEDS: INSULIN LISPRO 100 UNITS/ML, PEN SQ-INSULIN SCH ×2 (16:00→21:00)
[2017-11-23 19:44] VITALS: BP 118/73
[2017-11-23] MEDS: SODIUM CHLORIDE FLUSH 10ML SYR IVF SCH (21:00)
[2017-11-23] MEDS: SIMVASTATIN 40 MG TABLET PO SCH (21:47)
[2017-11-23] MEDS: DULOXETINE 30 MG CAPSULE.DR PO SCH (21:47)
[2017-11-24 02:00] VITALS: BP 112/68
[2017-11-24 04:07] LABS: ALBUMIN 1.6 g/dL (3.4-5.0); ANION GAP 8 mmol/L (5-15); CALCIUM 7.7 mg/dL (8.5-10.1); CHLORIDE 112 mmol/L (98-107); CREATININE 0.46 mg/dL (0.55-1.02)
[2017-11-24 04:08] LABS: BASOPHILS # (AUTO) 0.04 x10^3/uL (0-0.1); BASOPHILS % (AUTO) 1 % (0-1); EOSINOPHILS # (AUTO) 0.07 x10^3/uL (0-0.4); EOSINOPHILS % (AUTO) 1 % (1-7); LYMPHOCYTES # (AUTO) 1.54 x10^3/uL (1-3.4); LYMPHOCYTES % (AUTO) 20 % (22-44); MD NO; MEAN CORPUSCULAR HEMOGLOBIN 29.9 pg (27.0-34.8); MEAN CORPUSCULAR HGB CONC 33.1 g/dL (32.4-35.8); MEAN CORPUSCULAR VOLUME 90.4 fL (80-100); MEAN PLATELET VOLUME 7.5 fL (7.4-10.4); MONOCYTES # (AUTO) 0.28 x10^3/uL (0.2-0.8); MONOCYTES % (AUTO) 4 % (2-9); NEUTROPHILS # (AUTO) 5.64 x10^3/uL (1.8-6.8); NEUTROPHILS % (AUTO) 75 % (42-75); PLATELET COUNT 268 x10^3/uL (130-400); RED BLOOD COUNT 4.95 x10^6/uL (3.82-5.3); RED CELL DISTRIBUTION WIDTH 20.1 % (9.6-15.2)
[2017-11-24 07:00] VITALS: BP 111/69
[2017-11-24] MEDS: INSULIN LISPRO 100 UNITS/ML, PEN SQ-INSULIN SCH ×4 (07:00→21:59)
[2017-11-24] MEDS: OMEPRAZOLE 20 MG CAPSULE.DR PO SCH (09:00)
[2017-11-24] MEDS: CHOLESTYRAMINE LIGHT 4GM PACKET PO SCH (09:00)
[2017-11-24] MEDS: GABAPENTIN 300 MG CAPSULE PO SCH ×3 (09:00→21:58)
[2017-11-24] MEDS: INSULIN GLARGINE 100 UNITS/ML, PEN SQ-INSULIN SCH ×2 (09:00→21:59)
[2017-11-24] MEDS: SODIUM CHLORIDE FLUSH 10ML SYR IVF SCH ×2 (09:00→21:58)
[2017-11-24] MEDS: HEPARIN 25,000 UNITS/500ML PMX 500 ML IV PRN (09:29)
[2017-11-24] MEDS: MORPHINE SULFATE 4 MG/ML, 1ML IVPush PRN (09:49)
[2017-11-24] MEDS: SODIUM CHLORIDE 0.9% 1,000 ML IV SCH ×2 (10:06→22:54)
[2017-11-24 11:31] LABS: ALBUMIN 1.8 g/dL (3.4-5.0)
[2017-11-24 11:36] LABS: BILIRUBIN, DIRECT 0.1 mg/dL (0.1-0.2); BILIRUBIN,INDIRECT 0.2 mg/dL (0.0-2.0); BILIRUBIN,TOTAL 0.3 mg/dL (0.2-1.0); TOTAL PROTEIN 5.7 g/dL (6.4-8.2)
[2017-11-24 12:14] VITALS: BP 112/73
[2017-11-24] MEDS ORDERED: OMNIPAQUE 350 MG/ML, 100ML BOTTLE ONE (13:23)
[2017-11-24] MEDS ORDERED: FENTANYL PF 100 MCG/2ML ONE (13:27)
[2017-11-24] MEDS ORDERED: MIDAZOLAM 1 MG/ML, 5ML ONE (13:28)
[2017-11-24] MEDS ORDERED: NALOXONE 1 MG/ML, 2ML ONE (13:28)
[2017-11-24] MEDS ORDERED: FLUMAZENIL 0.1 MG/1 ML, 5ML ONE (13:28)
[2017-11-24 17:12] LABS: CLOSTRIDIUM DIFFICILE ANTIGEN POSITIVE; CLOSTRIDIUM DIFFICILE TOXIN NEGATIVE (Negative)
[2017-11-24] MEDS ORDERED: GADOBUTROL 7.5 MMOL/7.5 ML VIAL ONE (17:12)
[2017-11-24] MEDS: NICOTINE 14MG/24 HR PATCH.TD24 TD SCH (17:45)
[2017-11-24] MEDS: VANCOMYCIN 50 MG/ML ORAL SUSP PO SCH (18:41)
[2017-11-24 20:00] VITALS: BP 117/73
[2017-11-24] MEDS: DULOXETINE 30 MG CAPSULE.DR PO SCH (21:58)
[2017-11-24] MEDS: NYSTATIN TOPICAL POWDER 15GM TP SCH (22:00)
[2017-11-25] MEDS: VANCOMYCIN 50 MG/ML ORAL SUSP PO SCH ×4 (00:58→21:41)
[2017-11-25 02:00] VITALS: BP 117/78
[2017-11-25 05:16] LABS: BASOPHILS # (AUTO) 0.03 x10^3/uL (0-0.1); BASOPHILS % (AUTO) 0 % (0-1); EOSINOPHILS # (AUTO) 0.09 x10^3/uL (0-0.4); EOSINOPHILS % (AUTO) 1 % (1-7); LYMPHOCYTES # (AUTO) 1.67 x10^3/uL (1-3.4); LYMPHOCYTES % (AUTO) 19 % (22-44); MD NO; MEAN CORPUSCULAR HEMOGLOBIN 29.9 pg (27.0-34.8); MEAN CORPUSCULAR HGB CONC 33.1 g/dL (32.4-35.8); MEAN CORPUSCULAR VOLUME 90.4 fL (80-100); MEAN PLATELET VOLUME 7.1 fL (7.4-10.4); MONOCYTES # (AUTO) 0.26 x10^3/uL (0.2-0.8); MONOCYTES % (AUTO) 3 % (2-9); NEUTROPHILS % (AUTO) 76 % (42-75); PLATELET COUNT 264 x10^3/uL (130-400); RED BLOOD COUNT 4.74 x10^6/uL (3.82-5.3)
[2017-11-25 05:41] LABS: ALBUMIN 1.5 g/dL (3.4-5.0); ANION GAP 6 mmol/L (5-15); CHLORIDE 116 mmol/L (98-107)
[2017-11-25 05:46] LABS: ALANINE AMINOTRANSFERASE 66 U/L (12-78); ALKALINE PHOSPHATASE 118 U/L (45-117); BILIRUBIN,TOTAL 0.4 mg/dL (0.2-1.0); CREATININE 0.35 mg/dL (0.55-1.02); TOTAL PROTEIN 5.4 g/dL (6.4-8.2)
[2017-11-25] MEDS: D5%-0.9% NACL 1,000 ML IV SCH ×2 (06:10→23:42)
[2017-11-25] MEDS ORDERED: POTASSIUM CHLORIDE 40 MEQ in SODIUM CHLORIDE 0.9% 500 ML IV ONE (07:00)
[2017-11-25] MEDS: INSULIN LISPRO 100 UNITS/ML, PEN SQ-INSULIN SCH ×4 (07:00→21:43)
[2017-11-25 07:30] VITALS: BP 125/76
[2017-11-25] MEDS: NYSTATIN TOPICAL POWDER 15GM TP SCH ×3 (08:30→21:44)
[2017-11-25] MEDS: GABAPENTIN 300 MG CAPSULE PO SCH ×3 (09:00→21:42)
[2017-11-25] MEDS: INSULIN GLARGINE 100 UNITS/ML, PEN SQ-INSULIN SCH ×2 (09:00→22:02)
[2017-11-25] MEDS: CHOLESTYRAMINE LIGHT 4GM PACKET PO SCH (09:00)
[2017-11-25] MEDS: SODIUM CHLORIDE FLUSH 10ML SYR IVF SCH ×2 (09:00→21:42)
[2017-11-25] MEDS: DAPTOMYCIN 500 MG in SODIUM CHLORIDE 0.9% 100 ML IV SCH (09:28)
[2017-11-25] MEDS ORDERED: KETOROLAC 60 MG/2 ML ONE (10:07)
[2017-11-25] MEDS ORDERED: VANCOMYCIN 1,000 MG ONE ×2 (10:08→12:22)
[2017-11-25] MEDS ORDERED: ROPivacaine/PF 0.2%, 10 ML ONE (10:08)
[2017-11-25] MEDS ORDERED: TRANEXAMIC ACID 100 MG/ML, 10ML ONE ×2 (10:08)
[2017-11-25] MEDS ORDERED: ROPIvacaine/PF 0.2%, 20 ML ONE (10:08)
[2017-11-25] MEDS ORDERED: EPINEPHRINE 1 MG/ML, 1ML ONE (10:08)
[2017-11-25] MEDS ORDERED: ROPIvacaine/PF 0.5%, 30 ML ONE (10:09)
[2017-11-25] MEDS ORDERED: FENTANYL PF 250 MCG/5ML ONE ×3 (11:16→12:41)
[2017-11-25] MEDS ORDERED: ONDANSETRON 2MG/ML, 2ML ONE (11:19)
[2017-11-25] MEDS ORDERED: PROPOFOL 10 MG/ML, 20ML ONE (11:19)
[2017-11-25] MEDS ORDERED: ROCURONIUM 10 MG/ML,10ML ONE (11:19)
[2017-11-25] MEDS ORDERED: ONDANSETRON ODT 8 MG PO PRN (12:30)
[2017-11-25] MEDS ORDERED: ACETAMINOPHEN 325 MG TABLET PO PRN (12:30)
[2017-11-25] MEDS ORDERED: OXYcodone 5 MG/5 ML ORAL.SOL UDC PO PRN (12:30)
[2017-11-25] MEDS ORDERED: FENTANYL PF 100 MCG/2ML ONE (12:50)
[2017-11-25] MEDS ORDERED: HYDROmorphone 2 MG/ML, 1ML ONE (12:50)
[2017-11-25] MEDS ORDERED: OXYcodone 5 MG/5 ML ORAL.SOL UDC ONE (12:51)
[2017-11-25] MEDS: FENTANYL PF 100 MCG/2ML IV PRN ×2 (13:17→13:25)
[2017-11-25] MEDS: HYDROmorphone 1 MG/ML, 1ML IV PRN ×2 (13:30→13:35)
[2017-11-25] MEDS: MORPHINE SULFATE 4 MG/ML, 1ML IVPush PRN ×3 (14:46→22:53)
[2017-11-25 14:54] VITALS: BP 104/73
[2017-11-25] MEDS: NICOTINE 14MG/24 HR PATCH.TD24 TD SCH (16:46)
[2017-11-25 19:32] VITALS: BP 110/75
[2017-11-25] MEDS ORDERED: HEPARIN 5,000 UNITS/ML, 1ML IV PRN (21:30)
[2017-11-25] MEDS ORDERED: HEPARIN 5,000 UNITS/ML, 1ML IV ONE (21:30)
[2017-11-25] MEDS ORDERED: HEPARIN 25,000 UNITS/500ML PMX 500 ML IV PRN (21:30)
[2017-11-25] MEDS: DULOXETINE 30 MG CAPSULE.DR PO SCH (21:42)
[2017-11-25 23:00] VITALS: BP 108/70
[2017-11-26] MEDS ORDERED: HEPARIN 5,000 UNITS/ML, 1ML IV ONE (02:00)
[2017-11-26] MEDS ORDERED: HEPARIN 5,000 UNITS/ML, 1ML IV PRN (02:00)
[2017-11-26] MEDS ORDERED: HEPARIN 25,000 UNITS/500ML PMX 500 ML IV PRN (02:00)
[2017-11-26 02:11] VITALS: BP 99/64
[2017-11-26] MEDS: VANCOMYCIN 50 MG/ML ORAL SUSP PO SCH ×4 (03:55→21:18)
[2017-11-26 06:43] VITALS: BP 100/67
[2017-11-26] MEDS: INSULIN LISPRO 100 UNITS/ML, PEN SQ-INSULIN SCH ×4 (07:00→21:08)
[2017-11-26 07:51] LABS: ALBUMIN 1.3 g/dL (3.4-5.0); CALCIUM 6.4 mg/dL (8.5-10.1); CHLORIDE 114 mmol/L (98-107)
[2017-11-26 07:54] LABS: ALANINE AMINOTRANSFERASE 52 U/L (12-78); ALKALINE PHOSPHATASE 98 U/L (45-117); BASOPHILS # (AUTO) 0.06 x10^3/uL (0-0.1); BASOPHILS % (AUTO) 1 % (0-1); BILIRUBIN,TOTAL 0.5 mg/dL (0.2-1.0); CREATININE 0.43 mg/dL (0.55-1.02); EOSINOPHILS % (AUTO) 1 % (1-7); HEMOGRAM NOTE RECHECKED; LYMPHOCYTES % (AUTO) 20 % (22-44); MD NO; MEAN CORPUSCULAR HEMOGLOBIN 29.4 pg (27.0-34.8); MEAN CORPUSCULAR HGB CONC 32.8 g/dL (32.4-35.8); MEAN CORPUSCULAR VOLUME 89.8 fL (80-100); MEAN PLATELET VOLUME 6.8 fL (7.4-10.4); MONOCYTES # (AUTO) 0.33 x10^3/uL (0.2-0.8); MONOCYTES % (AUTO) 4 % (2-9); NEUTROPHILS # (AUTO) 5.57 x10^3/uL (1.8-6.8); NEUTROPHILS % (AUTO) 74 % (42-75); PLATELET COUNT 314 x10^3/uL (130-400); RED BLOOD COUNT 3.75 x10^6/uL (3.82-5.3); TOTAL PROTEIN 4.6 g/dL (6.4-8.2)
[2017-11-26] MEDS: GABAPENTIN 300 MG CAPSULE PO SCH ×3 (08:29→21:08)
[2017-11-26] MEDS: CHOLESTYRAMINE LIGHT 4GM PACKET PO SCH (08:30)
[2017-11-26 08:31] LABS: ANION GAP 4 mmol/L (5-15)
[2017-11-26] MEDS: INSULIN GLARGINE 100 UNITS/ML, PEN SQ-INSULIN SCH ×2 (08:32→21:24)
[2017-11-26] MEDS: NYSTATIN TOPICAL POWDER 15GM TP SCH ×3 (09:32→21:09)
[2017-11-26] MEDS: SODIUM CHLORIDE FLUSH 10ML SYR IVF SCH ×2 (09:33→21:08)
[2017-11-26] MEDS: MORPHINE SULFATE 4 MG/ML, 1ML IVPush PRN ×2 (09:33→13:38)
[2017-11-26] MEDS: DAPTOMYCIN 500 MG in SODIUM CHLORIDE 0.9% 100 ML IV SCH (10:39)
[2017-11-26 13:38] VITALS: BP 101/68
[2017-11-26] MEDS: NICOTINE 14MG/24 HR PATCH.TD24 TD SCH (16:26)
[2017-11-26] MEDS: RIVAROXABAN 20 MG TABLET PO SCH (17:21)
[2017-11-26 18:56] VITALS: BP 104/70
[2017-11-26] MEDS: DULOXETINE 30 MG CAPSULE.DR PO SCH (21:08)
[2017-11-27 01:11] VITALS: BP 100/66
[2017-11-27] MEDS: VANCOMYCIN 50 MG/ML ORAL SUSP PO SCH ×2 (03:08→08:13)
[2017-11-27 04:36] LABS: BASOPHILS # (AUTO) 0.02 x10^3/uL (0-0.1); BASOPHILS % (AUTO) 0 % (0-1); EOSINOPHILS # (AUTO) 0.06 x10^3/uL (0-0.4); EOSINOPHILS % (AUTO) 1 % (1-7); LYMPHOCYTES # (AUTO) 1.62 x10^3/uL (1-3.4); LYMPHOCYTES % (AUTO) 20 % (22-44); MD NO; MEAN CORPUSCULAR HEMOGLOBIN 29.7 pg (27.0-34.8); MEAN CORPUSCULAR HGB CONC 33.2 g/dL (32.4-35.8); MEAN CORPUSCULAR VOLUME 89.3 fL (80-100); MEAN PLATELET VOLUME 6.6 fL (7.4-10.4); MONOCYTES # (AUTO) 0.36 x10^3/uL (0.2-0.8); MONOCYTES % (AUTO) 5 % (2-9); NEUTROPHILS # (AUTO) 5.92 x10^3/uL (1.8-6.8); NEUTROPHILS % (AUTO) 74 % (42-75); PLATELET COUNT 327 x10^3/uL (130-400); RED BLOOD COUNT 3.76 x10^6/uL (3.82-5.3)
[2017-11-27 04:47] LABS: ALANINE AMINOTRANSFERASE 47 U/L (12-78); ALBUMIN 1.3 g/dL (3.4-5.0); ANION GAP 5 mmol/L (5-15); CALCIUM 6.9 mg/dL (8.5-10.1); CHLORIDE 112 mmol/L (98-107); CREATININE 0.41 mg/dL (0.55-1.02)
[2017-11-27 04:49] LABS: ALKALINE PHOSPHATASE 101 U/L (45-117); BILIRUBIN,TOTAL 0.4 mg/dL (0.2-1.0); TOTAL PROTEIN 4.8 g/dL (6.4-8.2)
[2017-11-27 07:32] VITALS: BP 99/64
[2017-11-27] MEDS: INSULIN LISPRO 100 UNITS/ML, PEN SQ-INSULIN SCH ×4 (08:11→21:35)
[2017-11-27] MEDS: GABAPENTIN 300 MG CAPSULE PO SCH ×3 (08:12→21:29)
[2017-11-27] MEDS: INSULIN GLARGINE 100 UNITS/ML, PEN SQ-INSULIN SCH (08:13)
[2017-11-27] MEDS: CHOLESTYRAMINE LIGHT 4GM PACKET PO SCH (08:13)
[2017-11-27] MEDS: SODIUM CHLORIDE FLUSH 10ML SYR IVF SCH ×2 (08:13→21:29)
[2017-11-27] MEDS: NYSTATIN TOPICAL POWDER 15GM TP SCH ×3 (08:13→21:29)
[2017-11-27] MEDS: MORPHINE SULFATE 4 MG/ML, 1ML IVPush PRN ×2 (08:15→17:19)
[2017-11-27] MEDS: DAPTOMYCIN 500 MG in SODIUM CHLORIDE 0.9% 100 ML IV SCH (09:40)
[2017-11-27 13:02] VITALS: BP 90/60
[2017-11-27] MEDS: RIVAROXABAN 20 MG TABLET PO SCH (15:57)
[2017-11-27] MEDS: NICOTINE 14MG/24 HR PATCH.TD24 TD SCH (15:58)
[2017-11-27 19:40] VITALS: BP 95/63
[2017-11-27] MEDS: DULOXETINE 30 MG CAPSULE.DR PO SCH (21:28)
[2017-11-28] MEDS: MORPHINE SULFATE 4 MG/ML, 1ML IVPush PRN ×2 (00:03→11:27)
[2017-11-28 02:11] VITALS: BP 100/59
[2017-11-28 04:19] LABS: BASOPHILS # (AUTO) 0.05 x10^3/uL (0-0.1); BASOPHILS % (AUTO) 1 % (0-1); EOSINOPHILS # (AUTO) 0.07 x10^3/uL (0-0.4); EOSINOPHILS % (AUTO) 1 % (1-7); LYMPHOCYTES # (AUTO) 1.58 x10^3/uL (1-3.4); LYMPHOCYTES % (AUTO) 21 % (22-44); MD NO; MEAN CORPUSCULAR HEMOGLOBIN 29.7 pg (27.0-34.8); MEAN PLATELET VOLUME 6.4 fL (7.4-10.4); MONOCYTES # (AUTO) 0.37 x10^3/uL (0.2-0.8); MONOCYTES % (AUTO) 5 % (2-9); NEUTROPHILS # (AUTO) 5.48 x10^3/uL (1.8-6.8); NEUTROPHILS % (AUTO) 73 % (42-75); PLATELET COUNT 385 x10^3/uL (130-400); RED CELL DISTRIBUTION WIDTH 19.7 % (9.6-15.2)
[2017-11-28 04:20] LABS: HCT (SEDRATE) 33.3 % (34.6-47.8)
[2017-11-28 04:30] LABS: ALANINE AMINOTRANSFERASE 38 U/L (12-78); ALBUMIN 1.3 g/dL (3.4-5.0); ANION GAP 5 mmol/L (5-15); CALCIUM 7.5 mg/dL (8.5-10.1); CHLORIDE 115 mmol/L (98-107); CREATININE 0.35 mg/dL (0.55-1.02); IRON LEVEL 25 mcg/dL (50-170)
[2017-11-28 04:37] LABS: % IRON SATURATION 22 % (20-55); ALKALINE PHOSPHATASE 102 U/L (45-117); BILIRUBIN,TOTAL 0.3 mg/dL (0.2-1.0); TOTAL IRON BINDING CAPACITY 113 mcg/dL (250-450)
[2017-11-28 06:50] VITALS: BP 103/65
[2017-11-28] MEDS: INSULIN LISPRO 100 UNITS/ML, PEN SQ-INSULIN SCH ×4 (07:40→21:17)
[2017-11-28] MEDS: SODIUM CHLORIDE FLUSH 10ML SYR IVF SCH ×2 (09:49→21:16)
[2017-11-28] MEDS: INSULIN GLARGINE 100 UNITS/ML, PEN SQ-INSULIN SCH (09:49)
[2017-11-28] MEDS: GABAPENTIN 300 MG CAPSULE PO SCH ×3 (09:50→21:16)
[2017-11-28] MEDS: CHOLESTYRAMINE LIGHT 4GM PACKET PO SCH (09:50)
[2017-11-28] MEDS: NYSTATIN TOPICAL POWDER 15GM TP SCH ×3 (09:50→21:17)
[2017-11-28] MEDS: DAPTOMYCIN 500 MG in SODIUM CHLORIDE 0.9% 100 ML IV SCH (11:01)
[2017-11-28 13:07] VITALS: BP 115/71
[2017-11-28] MEDS ORDERED: OXYcodone IR 5MG TABLET ONE (14:02)
[2017-11-28] MEDS: OXYcodone IR 5MG TABLET PO PRN ×3 (14:10→22:40)
[2017-11-28] MEDS ORDERED: LIDOCAINE-MPF 1%, 2ML ONE (14:58)
[2017-11-28] MEDS: NICOTINE 14MG/24 HR PATCH.TD24 TD SCH (16:51)
[2017-11-28] MEDS: RIVAROXABAN 20 MG TABLET PO SCH (16:51)
[2017-11-28 18:46] VITALS: BP 100/68
[2017-11-28] MEDS: DULOXETINE 30 MG CAPSULE.DR PO SCH (21:16)
[2017-11-29 02:24] VITALS: BP 103/64
[2017-11-29 04:56] LABS: BASOPHILS # (AUTO) 0.02 x10^3/uL (0-0.1); BASOPHILS % (AUTO) 0 % (0-1); EOSINOPHILS # (AUTO) 0.07 x10^3/uL (0-0.4); EOSINOPHILS % (AUTO) 1 % (1-7); LYMPHOCYTES # (AUTO) 1.69 x10^3/uL (1-3.4); LYMPHOCYTES % (AUTO) 22 % (22-44); MD NO; MEAN CORPUSCULAR HEMOGLOBIN 30.2 pg (27.0-34.8); MEAN CORPUSCULAR HGB CONC 33.4 g/dL (32.4-35.8); MEAN CORPUSCULAR VOLUME 90.3 fL (80-100); MEAN PLATELET VOLUME 6.7 fL (7.4-10.4); MONOCYTES # (AUTO) 0.53 x10^3/uL (0.2-0.8); MONOCYTES % (AUTO) 7 % (2-9); NEUTROPHILS # (AUTO) 5.46 x10^3/uL (1.8-6.8); NEUTROPHILS % (AUTO) 70 % (42-75); PLATELET COUNT 396 x10^3/uL (130-400); RED BLOOD COUNT 3.38 x10^6/uL (3.82-5.3); RED CELL DISTRIBUTION WIDTH 19.8 % (9.6-15.2)
[2017-11-29 05:03] LABS: CHLORIDE 112 mmol/L (98-107)
[2017-11-29 05:08] LABS: ALANINE AMINOTRANSFERASE 32 U/L (12-78); ALBUMIN 1.3 g/dL (3.4-5.0); ALKALINE PHOSPHATASE 97 U/L (45-117); ANION GAP 7 mmol/L (5-15); BILIRUBIN,TOTAL 0.3 mg/dL (0.2-1.0); CALCIUM 7.8 mg/dL (8.5-10.1)
[2017-11-29] MEDS: INSULIN LISPRO 100 UNITS/ML, PEN SQ-INSULIN SCH ×4 (07:00→20:38)
[2017-11-29 07:06] VITALS: BP 104/65
[2017-11-29] MEDS: OXYcodone IR 5MG TABLET PO PRN ×2 (08:23→14:35)
[2017-11-29] MEDS: NYSTATIN TOPICAL POWDER 15GM TP SCH ×3 (09:00→20:38)
[2017-11-29] MEDS: CHOLESTYRAMINE LIGHT 4GM PACKET PO SCH (09:19)
[2017-11-29] MEDS: GABAPENTIN 300 MG CAPSULE PO SCH ×3 (09:19→20:37)
[2017-11-29] MEDS: INSULIN GLARGINE 100 UNITS/ML, PEN SQ-INSULIN SCH (09:20)
[2017-11-29] MEDS: SODIUM CHLORIDE FLUSH 10ML SYR IVF SCH ×2 (09:23→20:37)
[2017-11-29] MEDS: DAPTOMYCIN 500 MG in SODIUM CHLORIDE 0.9% 100 ML IV SCH (11:06)
[2017-11-29 12:45] VITALS: BP 111/72
[2017-11-29] MEDS: NICOTINE 14MG/24 HR PATCH.TD24 TD SCH (16:10)
[2017-11-29] MEDS: RIVAROXABAN 20 MG TABLET PO SCH (16:10)
[2017-11-29 18:53] VITALS: BP 116/73
[2017-11-29] MEDS: DULOXETINE 30 MG CAPSULE.DR PO SCH (20:38)
[2017-11-30 01:50] VITALS: BP 106/66
[2017-11-30] MEDS: OXYcodone IR 5MG TABLET PO PRN (02:45)
[2017-11-30] MEDS: INSULIN LISPRO 100 UNITS/ML, PEN SQ-INSULIN SCH ×2 (07:00→11:58)
[2017-11-30 08:05] VITALS: BP 97/62
[2017-11-30] MEDS: SODIUM CHLORIDE FLUSH 10ML SYR IVF SCH (09:00)
[2017-11-30] MEDS ORDERED: POTASSIUM CHLORIDE 20 MEQ TAB.ER.PRT PO ONE (09:30)
[2017-11-30] MEDS ORDERED: INSU100I13 SQ-INSULIN (09:44)
[2017-11-30] MEDS ORDERED: GABA300C10 PO (09:44)
[2017-11-30] MEDS ORDERED: DULO30CA2 PO (09:44)
[2017-11-30] MEDS ORDERED: NICO-486 TD (09:44)
[2017-11-30] MEDS ORDERED: NYST60PO TP (09:44)
[2017-11-30] MEDS ORDERED: ONDA4VIA4 IVPush (09:44)
[2017-11-30] MEDS ORDERED: ONDA4TAB13 PO (09:44)
[2017-11-30] MEDS ORDERED: OXYC5TAB3 PO (09:44)
[2017-11-30] MEDS ORDERED: CHOL239. PO (09:44)
[2017-11-30] MEDS ORDERED: DAPT500V6 IV (09:44)
[2017-11-30] MEDS ORDERED: RIVA20TA PO (09:47)
[2017-11-30] MEDS ORDERED: RIVA15TA PO (09:47)
[2017-11-30] MEDS: NYSTATIN TOPICAL POWDER 15GM TP SCH (10:00)
[2017-11-30] MEDS: CHOLESTYRAMINE LIGHT 4GM PACKET PO SCH (10:00)
[2017-11-30] MEDS: GABAPENTIN 300 MG CAPSULE PO SCH (10:00)
[2017-11-30] MEDS: INSULIN GLARGINE 100 UNITS/ML, PEN SQ-INSULIN SCH (10:01)
[2017-11-30] MEDS: DAPTOMYCIN 500 MG in SODIUM CHLORIDE 0.9% 100 ML IV SCH (11:40)
== END 2017-11-30 13:13 | DRG 463 ==
LOC: ED 13:27 → EDIP 14:55 → 3NW 15:35
PROVIDERS: ADMIT Internal Medicine; ATTEND Internal Medicine
PROC: 06H03DZ Insertion of Intraluminal Device into Inferior Vena Cava, Percutaneous Approach (ICD-10-PCS; 2017-11-24)
PROC: 0SPB0JZ Removal of Synthetic Substitute from Left Hip Joint, Open Approach (ICD-10-PCS; 2017-11-25)
PROC: 02HV33Z Insertion of Infusion Device into Superior Vena Cava, Percutaneous Approach (ICD-10-PCS; principal; 2017-11-28)
PROC: B548ZZA Ultrasonography of Superior Vena Cava, Guidance (ICD-10-PCS; 2017-11-28)
PROC: B518ZZA Fluoroscopy of Superior Vena Cava, Guidance (ICD-10-PCS; 2017-11-28)
DX: T84.52XA Infection and inflammatory reaction due to internal left hip prosthesis, initial encounter (principal); E43 Unspecified severe protein-calorie malnutrition; J96.91 Respiratory failure, unspecified with hypoxia; I26.99 Other pulmonary embolism without acute cor pulmonale; C64.9 Malignant neoplasm of unspecified kidney, except renal pelvis; C78.00 Secondary malignant neoplasm of unspecified lung; C79.49 Secondary malignant neoplasm of other parts of nervous system; C79.51 Secondary malignant neoplasm of bone; C79.89 Secondary malignant neoplasm of other specified sites; D68.69 Other thrombophilia; E87.0 Hyperosmolality and hypernatremia; G95.20 Unspecified cord compression; I82.412 Acute embolism and thrombosis of left femoral vein; L03.116 Cellulitis of left lower limb; J98.11 Atelectasis; M48.54XA Collapsed vertebra, not elsewhere classified, thoracic region, initial encounter for fracture; B37.2 Candidiasis of skin and nail; L89.159 Pressure ulcer of sacral region, unspecified stage; K21.9 Gastro-esophageal reflux disease without esophagitis; J44.9 Chronic obstructive pulmonary disease, unspecified; D63.8 Anemia in other chronic diseases classified elsewhere; E03.9 Hypothyroidism, unspecified; E11.9 Type 2 diabetes mellitus without complications; E78.5 Hyperlipidemia, unspecified; F17.200 Nicotine dependence, unspecified, uncomplicated; F32.9 Major depressive disorder, single episode, unspecified; Z96.642 Presence of left artificial hip joint; G89.4 Chronic pain syndrome; I10 Essential (primary) hypertension; Y83.1 Surgical operation with implant of artificial internal device as the cause of abnormal reaction of the patient, or of later complication, without mention of misadventure at the time of the procedure; Z86.711 Personal history of pulmonary embolism; Z68.27 Body mass index [BMI] 27.0-27.9, adult; Z82.5 Family history of asthma and other chronic lower respiratory diseases; Z79.01 Long term (current) use of anticoagulants; Z79.4 Long term (current) use of insulin; Z83.3 Family history of diabetes mellitus; Z85.528 Personal history of other malignant neoplasm of kidney; Z86.718 Personal history of other venous thrombosis and embolism; Z90.5 Acquired absence of kidney; Z99.3 Dependence on wheelchair; Z90.710 Acquired absence of both cervix and uterus; Z92.3 Personal history of irradiation; Z92.21 Personal history of antineoplastic chemotherapy; Y92.89 Other specified places as the place of occurrence of the external cause
CPT/HCPCS: 20611; 36415; 36569; 37191; 71275; 72157; 72158; 76937; 77001; 80048; 80053; 80076; 81001; 82040; 82550; 82962; 82977; 83036; 83540; 83550; 83735; 84100; 84439; 84443; 85025; 85520; 85610; 85651; 85730; 86140; 87040; 87070; 87075; 87077; 87186; 87205; 87324; 87493; 89051; 93005; 93970; 96374; 99156; 99157; A9585; C1880; C1894; J0171; J0878; J1170; J1644; J1885; J2250; J2405; J2704; J2795; J3010; J3370; J3480; J3490; J7042; Q0162; Q9967; C1751; C1769; J1815; J2310; J7030; J7040

== ENCOUNTER 2018-04-24 11:10 | Outpatient (CLI) | payer OTHER ==
[~2018-04-24 11:10] MED LIST changes: +CHOL239. PO; +DAPT500V6 IV; +NYST60PO TP; +OMEP40CA6 PO; +ONDA4TAB13 PO; +ONDA4VIA8 IVPush; +RIVA15TA PO; +RIVA20TA PO
[2018-04-30] MEDS ORDERED: PANT40TA5 PO (11:34)
[2018-04-30] MEDS ORDERED: MORP15TA PO (11:34)
[2018-04-30] MEDS ORDERED: DOXY100C2 PO (11:34)
[2018-04-30] MEDS ORDERED: CABO40TA PO (11:36)
== END 2018-05-01 09:54 | disposition home or self-care (01) ==
LOC: CFH 11:10
PROVIDERS: ATTEND Internal Medicine Hematology & Oncology
DX: Z02.9 Encounter for administrative examinations, unspecified (principal)

== ENCOUNTER 2018-04-30 10:47 | Inpatient (IN) | payer OTHER ==
[~2018-04-30] VITALS: Ht 167.6 cm; Wt 65.2 kg
[2018-04-30] MEDS ORDERED: NALOXONE 0.4 MG/ML, 1ML ONE (11:04)
[2018-04-30] MEDS ORDERED: ONDANSETRON 2MG/ML, 2ML ONE (11:21)
[2018-04-30] MEDS ORDERED: ONDANSETRON 2MG/ML, 2ML IVPush ONE (11:30)
[2018-04-30] MEDS ORDERED: SODIUM CHLORIDE FLUSH 10ML SYR IVF ONE (11:30)
[2018-04-30] MEDS ORDERED: SODIUM CHLORIDE 0.9% 1,000ML IVBOLUS ONE ×2 (11:30→14:30)
[2018-04-30] MEDS ORDERED: NALOXONE 0.4 MG/ML, 1ML IVPush ONE (11:30)
[2018-04-30] MEDS ORDERED: PANT40TA5 PO (11:34)
[2018-04-30] MEDS ORDERED: DOXY100C2 PO (11:34)
[2018-04-30] MEDS ORDERED: MORP15TA PO (11:34)
[2018-04-30] MEDS ORDERED: CABO40TA PO (11:36)
[2018-04-30 11:47] LABS: ALBUMIN 1.3 g/dL (3.4-5.0); ANION GAP 12 mmol/L (5-15); CALCIUM 7.9 mg/dL (8.5-10.1); CHLORIDE 100 mmol/L (98-107)
[2018-04-30 11:49] LABS: ALANINE AMINOTRANSFERASE 96 U/L (12-78); ALKALINE PHOSPHATASE 310 U/L (45-117); BILIRUBIN,TOTAL 2.2 mg/dL (0.2-1.0); CREATINE KINASE, TOTAL 166 U/L (26-192); CREATININE 1.13 mg/dL (0.55-1.02); TOTAL PROTEIN 4.4 g/dL (6.4-8.2)
[2018-04-30 11:50] LABS: SALICYLATE LEVEL < 1.7 mg/dL (2.8-20.0)
[2018-04-30 11:52] LABS: ACETAMINOPHEN 7 mcg/mL (10-30)
[2018-04-30 11:58] LABS: MEAN CORPUSCULAR VOLUME 81.4 fL (80-100); MEAN PLATELET VOLUME 8.1 fL (7.4-10.4); PLATELET COUNT 190 x10^3/uL (130-400); RED BLOOD COUNT 5.33 x10^6/uL (3.82-5.3); RED CELL DISTRIBUTION WIDTH 27.1 % (9.6-15.2)
[2018-04-30 11:59] LABS: TROPONIN I 0.153 ng/mL (0.000-0.045)
[2018-04-30 12:05] LABS: INTERNATIONAL NORMALIZED RATIO 1.87 (0.93-1.1); PROTHROMBIN TIME 19.4 Seconds (9.6-11.5)
[2018-04-30] MEDS ORDERED: ASPIRIN 81 MG TABLET CHEW PO ONE (12:30)
[2018-04-30] MEDS ORDERED: OMNIPAQUE 350 MG/ML, 100ML BOTTLE ONE (13:11)
[2018-04-30 13:23] LABS: CULTURE INDICATED? YES; MICROSCOPIC INDICATED
[2018-04-30 13:23] LABS: CLOSTRIDIUM DIFFICILE ANTIGEN NEGATIVE; CLOSTRIDIUM DIFFICILE TOXIN NEGATIVE (Negative)
[2018-04-30] MEDS ORDERED: ASPIRIN 81 MG TABLET CHEW ONE (13:27)
[2018-04-30 13:46] LABS: MD YES
[2018-04-30 13:52] LABS: ANISOCYTOSIS 2+; BANDS%(MANUAL) 10 % (0-7); LYMPH#(MANUAL) 0.26 x10^3/uL (1-3.4); LYMPHS% (MANUAL) 2 % (22-44); MICROCYTOSIS 1+; SEG#(MANUAL) 11.44 x10^3/uL (1.8-6.8); SEGS% (MANUAL) 88 % (42-75); SPHEROCYTES 1+; STOMATOCYTES 1+
[2018-04-30 13:53] LABS: <PLATELET ESTIMATE> ADEQUATE; <PLT MORPHOLOGY> NORMAL PLT MORPH
[2018-04-30 14:30] VITALS: BP 62/46
[2018-04-30] MEDS ORDERED: PHARMACOKINETIC MONITORING MC PRN (15:30)
[2018-04-30] MEDS ORDERED: PHARMACOKINETIC CONSULTATION MC ONE (15:30)
[2018-04-30] MEDS: AMPICILLIN/SULBACTAM 3 GM in SODIUM CHLORIDE 0.9% 100 ML IV SCH ×2 (15:47→16:29)
[2018-04-30] MEDS: SODIUM CHLORIDE 0.9% 1,000 ML IV SCH ×2 (15:48→21:15)
[2018-04-30] MEDS ORDERED: PHARMACY INSTRUCTION MC SCH (16:00)
[2018-04-30] MEDS ORDERED: NOREPINEPHRINE 4 MG in SODIUM CHLORIDE 0.9% 246 ML IV PRN (16:00)
[2018-04-30] MEDS ORDERED: ONDANSETRON 2MG/ML, 2ML IVPush PRN (16:00)
[2018-04-30] MEDS: INSULIN LISPRO 100 UNITS/ML, PEN SQ-INSULIN SCH ×2 (16:00→21:00)
[2018-04-30] MEDS ORDERED: HEPARIN 5,000 UNITS/ML, 1ML SQ SCH (16:00)
[2018-04-30] MEDS ORDERED: hydrALAzine 20 MG/ML, 1ML IVPush PRN (16:00)
[2018-04-30] MEDS ORDERED: VASOPRESSIN 100 UNIT in SODIUM CHLORIDE 0.9% 495 ML IV PRN (16:00)
[2018-04-30 16:36] LABS: TROPONIN I 0.218 ng/mL (0.000-0.045)
[2018-04-30] MEDS: RIVAROXABAN 20 MG TABLET PO SCH (17:00)
[2018-04-30] MEDS ORDERED: VANCOMYCIN PER PHARMACY MC PRN (17:00)
[2018-04-30] MEDS: VANCOMYCIN 1,400 MG in SODIUM CHLORIDE 0.9% 250 ML IV SCH (17:06)
[2018-04-30] MEDS: FLUCONAZOLE 200 MG/100 ML 100 ML IV SCH (17:06)
[2018-04-30] MEDS ORDERED: DEXTROSE 50%, 50ML SYRINGE ONE (17:10)
[2018-04-30] MEDS: SIMVASTATIN 40 MG TABLET PO SCH (21:00)
[2018-04-30] MEDS: PANTOPRAZOLE 40 MG IV IVPush SCH (21:14)
[2018-05-01 00:10] LABS: TROPONIN I 0.183 ng/mL (0.000-0.045)
[2018-05-01] MEDS: AMPICILLIN/SULBACTAM 3 GM in SODIUM CHLORIDE 0.9% 100 ML IV SCH ×4 (02:08→20:47)
[2018-05-01] MEDS: SODIUM CHLORIDE 0.9% 1,000 ML IV SCH ×3 (04:36→21:01)
[2018-05-01 04:38] LABS: MEAN CORPUSCULAR HEMOGLOBIN 26.7 pg (27.0-34.8); MEAN PLATELET VOLUME 8.2 fL (7.4-10.4); PLATELET COUNT 157 x10^3/uL (130-400); RED BLOOD COUNT 4.61 x10^6/uL (3.82-5.3); RED CELL DISTRIBUTION WIDTH 27.1 % (9.6-15.2)
[2018-05-01 04:44] LABS: ALBUMIN 1.1 g/dL (3.4-5.0); ANION GAP 8 mmol/L (5-15); CALCIUM 7.2 mg/dL (8.5-10.1); CHLORIDE 110 mmol/L (98-107)
[2018-05-01 04:50] LABS: ALANINE AMINOTRANSFERASE 86 U/L (12-78); ALKALINE PHOSPHATASE 283 U/L (45-117); BILIRUBIN,TOTAL 2.5 mg/dL (0.2-1.0); CREATININE 1.04 mg/dL (0.55-1.02)
[2018-05-01 05:00] VITALS: BP 87/54
[2018-05-01 05:41] LABS: MD YES
[2018-05-01 05:45] LABS: BAND#(MANUAL) 0.58 x10^3/uL; BANDS%(MANUAL) 5 % (0-7); BASOS#(MANUAL) 0.12 x10^3/uL (0-0.1); BASOS% (MANUAL) 1 % (0-1); LYMPH#(MANUAL) 1.74 x10^3/uL (1-3.4); LYMPHS% (MANUAL) 15 % (22-44); NRBC % (MANUAL) 1 % (0-1); SEG#(MANUAL) 9.16 x10^3/uL (1.8-6.8); SEGS% (MANUAL) 79 % (42-75)
[2018-05-01 05:47] LABS: ANISOCYTOSIS 2+; MICROCYTOSIS 1+; POLYCHROMASIA 1+
[2018-05-01 05:49] LABS: <PLATELET ESTIMATE> ADEQUATE; <PLT MORPHOLOGY> NORMAL PLT MORPH
[2018-05-01] MEDS: INSULIN LISPRO 100 UNITS/ML, PEN SQ-INSULIN SCH ×4 (06:17→20:46)
[2018-05-01] MEDS ORDERED: SODIUM CHLORIDE 0.9%, 500ML IVBOLUS ONE ×2 (07:00)
[2018-05-01] MEDS ORDERED: FENTANYL PF 100 MCG/2ML ONE (08:42)
[2018-05-01] MEDS ORDERED: MIDAZOLAM 1 MG/ML, 5ML ONE (09:02)
[2018-05-01] MEDS: PANTOPRAZOLE 40 MG IV IVPush SCH ×2 (09:54→20:47)
[2018-05-01] MEDS ORDERED: MAGNESIUM SULFATE PMX 4GM/100M 100 ML IV ONE (12:00)
[2018-05-01] MEDS: VANCOMYCIN 1,400 MG in SODIUM CHLORIDE 0.9% 250 ML IV SCH (12:06)
[2018-05-01] MEDS ORDERED: LIDOCAINE-MPF 1%, 5ML ONE (13:19)
[2018-05-01 16:23] LABS: SYN CELLS COUNTED 2
[2018-05-01] MEDS: FLUCONAZOLE 200 MG/100 ML 100 ML IV SCH (17:38)
[2018-05-01] MEDS: RIVAROXABAN 20 MG TABLET PO SCH (17:40)
[2018-05-01] MEDS: SIMVASTATIN 40 MG TABLET PO SCH (20:46)
[2018-05-02] MEDS: morphine SULFATE 10 MG/ML, 1ML IVPush PRN ×2 (00:03→04:00)
[2018-05-02 04:35] LABS: ANION GAP 13 mmol/L (5-15); CALCIUM 7.3 mg/dL (8.5-10.1); CHLORIDE 114 mmol/L (98-107)
[2018-05-02 04:38] LABS: ALANINE AMINOTRANSFERASE 83 U/L (12-78); ALKALINE PHOSPHATASE 276 U/L (45-117); BILIRUBIN,TOTAL 2.4 mg/dL (0.2-1.0); CREATININE 1.02 mg/dL (0.55-1.02); TOTAL PROTEIN 3.8 g/dL (6.4-8.2); VANCOMYCIN,TROUGH 27.3 mcg/mL (5.0-10.0)
[2018-05-02] MEDS: AMPICILLIN/SULBACTAM 3 GM in SODIUM CHLORIDE 0.9% 100 ML IV SCH ×4 (05:00→21:18)
[2018-05-02] MEDS: SODIUM CHLORIDE 0.9% 1,000 ML IV SCH ×2 (05:00→12:01)
[2018-05-02 05:33] LABS: BASOPHILS # (AUTO) 0.03 x10^3/uL (0-0.1); BASOPHILS % (AUTO) 0 % (0-1); EOSINOPHILS # (AUTO) 0.03 x10^3/uL (0-0.4); EOSINOPHILS % (AUTO) 0 % (1-7); LYMPHOCYTES # (AUTO) 3.23 x10^3/uL (1-3.4); LYMPHOCYTES % (AUTO) 29 % (22-44); MD SCAN; MEAN CORPUSCULAR HEMOGLOBIN 26.4 pg (27.0-34.8); MEAN CORPUSCULAR HGB CONC 32.3 g/dL (32.4-35.8); MEAN CORPUSCULAR VOLUME 81.5 fL (80-100); MEAN PLATELET VOLUME 8.2 fL (7.4-10.4); MONOCYTES # (AUTO) 0.46 x10^3/uL (0.2-0.8); MONOCYTES % (AUTO) 4 % (2-9); NEUTROPHILS # (AUTO) 7.53 x10^3/uL (1.8-6.8); NEUTROPHILS % (AUTO) 67 % (42-75); PLATELET COUNT 166 x10^3/uL (130-400); RED CELL DISTRIBUTION WIDTH 27.6 % (9.6-15.2)
[2018-05-02 06:00] VITALS: BP 95/53
[2018-05-02] MEDS ORDERED: VANCOMYCIN 1,400 MG in SODIUM CHLORIDE 0.9% 250 ML IV SCH ×2 (06:00→12:00)
[2018-05-02] MEDS ORDERED: POTASSIUM PHOSPHATE 44 MEQ in SODIUM CHLORIDE 0.9% 500 ML IV ONE (06:30)
[2018-05-02] MEDS ORDERED: POTASSIUM CHLORIDE 20 MEQ TAB.ER.PRT PO ONE (06:30)
[2018-05-02] MEDS: INSULIN LISPRO 100 UNITS/ML, PEN SQ-INSULIN SCH ×3 (07:00→23:00)
[2018-05-02] MEDS: PANTOPRAZOLE 40 MG IV IVPush SCH ×2 (07:21→21:16)
[2018-05-02] MEDS ORDERED: PROPOFOL 10 MG/ML, 100ML IV ONE (08:00)
[2018-05-02] MEDS ORDERED: ETOMIDATE 20 MG/10 ML ONE (08:00)
[2018-05-02] MEDS ORDERED: SUCCINYLCHOLINE 20 MG/ML, 10ML ONE (08:00)
[2018-05-02] MEDS: HYDROCORTISONE 100 MG INJ. IVPush SCH ×2 (12:48→20:24)
[2018-05-02] MEDS: FLUCONAZOLE 200 MG/100 ML 100 ML IV SCH (16:34)
[2018-05-02] MEDS: RIVAROXABAN 20 MG TABLET PO SCH (17:15)
[2018-05-02] MEDS: SIMVASTATIN 40 MG TABLET PO SCH (21:16)
[2018-05-02] MEDS ORDERED: SODIUM CHLORIDE 0.9%, 500ML IVBOLUS ONE (22:00)
[2018-05-02] MEDS: VANCOMYCIN PMX 1GM/200ML 200 ML IV SCH (22:07)
[2018-05-03] MEDS ORDERED: ALBUTEROL SULFATE 2.5 MG/3 ML NPPB PRN
[2018-05-03] MEDS: SODIUM CHLORIDE 0.9% 1,000 ML IV SCH ×2 (00:16→07:30)
[2018-05-03] MEDS ORDERED: PROPOFOL 100 ML IV PRN (01:36)
[2018-05-03] MEDS ORDERED: BISACODYL 10 MG SUPP PR PRN (02:00)
[2018-05-03] MEDS ORDERED: LACTULOSE 20 GM/30 ML UDC NG PRN (02:00)
[2018-05-03] MEDS ORDERED: SUCCINYLCHOLINE 20 MG/ML, 10ML IVPush ONE (02:00)
[2018-05-03] MEDS ORDERED: ETOMIDATE 20 MG/10 ML IVPush ONE (02:00)
[2018-05-03] MEDS ORDERED: SENNOSIDES 8.8 MG/5 ML ORAL SOL NG PRN (02:00)
[2018-05-03] MEDS ORDERED: PHARMACY MAY ADJ FOR RENAL FX MC SCH ×2 (02:00→10:00)
[2018-05-03] MEDS ORDERED: SENNA/DOCUSATE TABLET NG PRN (02:00)
[2018-05-03] MEDS ORDERED: LIDOCAINE-MPF 1%, 2ML ENDO PRN ×2 (02:00→10:00)
[2018-05-03] MEDS: AMPICILLIN/SULBACTAM 3 GM in SODIUM CHLORIDE 0.9% 100 ML IV SCH (02:52)
[2018-05-03 04:20] LABS: ALANINE AMINOTRANSFERASE 80 U/L (12-78); ALBUMIN 0.9 g/dL (3.4-5.0); ANION GAP 16 mmol/L (5-15); CALCIUM 6.3 mg/dL (8.5-10.1); CHLORIDE 120 mmol/L (98-107); CREATININE 1.05 mg/dL (0.55-1.02)
[2018-05-03 04:22] LABS: ALKALINE PHOSPHATASE 277 U/L (45-117); BILIRUBIN,TOTAL 2.2 mg/dL (0.2-1.0); TOTAL PROTEIN 3.6 g/dL (6.4-8.2)
[2018-05-03 04:23] LABS: MEAN CORPUSCULAR HEMOGLOBIN 25.7 pg (27.0-34.8); MEAN CORPUSCULAR HGB CONC 30.9 g/dL (32.4-35.8); MEAN CORPUSCULAR VOLUME 83.2 fL (80-100); PLATELET COUNT 143 x10^3/uL (130-400); RED BLOOD COUNT 4.35 x10^6/uL (3.82-5.3); RED CELL DISTRIBUTION WIDTH 28.3 % (9.6-15.2)
[2018-05-03 04:45] LABS: MD YES
[2018-05-03 04:46] LABS: ANISOCYTOSIS 1+; BAND#(MANUAL) 1.01 x10^3/uL; BANDS%(MANUAL) 6 % (0-7); LYMPH#(MANUAL) 1.35 x10^3/uL (1-3.4); LYMPHS% (MANUAL) 8 % (22-44); MICROCYTOSIS 1+; MONOS#(MANUAL) 0.51 x10^3/uL (0.3-2.7); MONOS% (MANUAL) 3 % (2-9); NRBC % (MANUAL) 1 % (0-1); POLYCHROMASIA 1+; SEG#(MANUAL) 14.03 x10^3/uL (1.8-6.8); SEGS% (MANUAL) 83 % (42-75)
[2018-05-03 04:47] LABS: <PLATELET ESTIMATE> ADEQUATE; <PLT MORPHOLOGY> NORMAL PLT MORPH; PMNS WITH VACUOLES 1+; SPHEROCYTES 1+
[2018-05-03] MEDS: HYDROCORTISONE 100 MG INJ. IVPush SCH ×3 (04:59→21:06)
[2018-05-03 05:00] VITALS: BP 79/47
[2018-05-03] MEDS: INSULIN LISPRO 100 UNITS/ML, PEN SQ-INSULIN SCH ×4 (05:02→23:42)
[2018-05-03] MEDS ORDERED: NOREPINEPHRINE 4 MG in SODIUM CHLORIDE 0.9% 246 ML IV PRN (05:30)
[2018-05-03] MEDS: PANTOPRAZOLE 40 MG IV IVPush SCH ×2 (08:08→21:06)
[2018-05-03] MEDS ORDERED: SODIUM BICARBONATE 8.4% 150 MEQ in DEXTROSE 5% 1,000 ML IV SCH (08:30)
[2018-05-03] MEDS: PIPERACILLIN/TAZO/PMX 3.375GM 50 ML IV SCH ×3 (09:14→21:04)
[2018-05-03] MEDS: ALBUTEROL/IPRATROPIUM 2.5MG/0.5MG, 3 ML INLINE SCH ×4 (09:57→22:34)
[2018-05-03] MEDS ORDERED: MIDAZOLAM 1 MG/ML, 2ML IVPush PRN (10:00)
[2018-05-03] MEDS ORDERED: IPRATROPIUM 0.5 MG/2.5 ML INHA INLINE SCH (10:00)
[2018-05-03] MEDS ORDERED: FENTANYL PF 2,500 MCG in SODIUM CHLORIDE 0.9% 200 ML IV PRN (10:00)
[2018-05-03] MEDS: MIDAZOLAM HCL 50 MG in SODIUM CHLORIDE 0.9% 240 ML IV PRN (10:33)
[2018-05-03 11:01] LABS: TRIGLYCERIDES 497 mg/dL (50-200); TROPONIN I 0.206 ng/mL (0.000-0.045)
[2018-05-03] MEDS ORDERED: MAGNESIUM SULFATE PMX 2GM/50ML 50 ML IV ONE (14:30)
[2018-05-03] MEDS: FLUCONAZOLE 200 MG/100 ML 100 ML IV SCH (15:39)
[2018-05-03] MEDS ORDERED: SODIUM BICARBONATE 1 MEQ/ML, 50ML VIAL IVPush STA (16:27)
[2018-05-03] MEDS: RIVAROXABAN 20 MG TABLET PO SCH (17:04)
[2018-05-03] MEDS: SIMVASTATIN 40 MG TABLET PO SCH (21:04)
[2018-05-03] MEDS: NOREPINEPHRINE 4 MG in SODIUM CHLORIDE 0.9% 246 ML IV PRN (21:06)
[2018-05-03 21:41] LABS: ANION GAP 11 mmol/L (5-15); CALCIUM 6.4 mg/dL (8.5-10.1); CHLORIDE 117 mmol/L (98-107); CREATININE 1.44 mg/dL (0.55-1.02)
[2018-05-03] MEDS: VANCOMYCIN PMX 1GM/200ML 200 ML IV SCH (22:11)
[2018-05-03] MEDS ORDERED: ALBUMIN HUMAN 25% 100 ML IV ONE (22:30)
[2018-05-04] MEDS: ALBUTEROL/IPRATROPIUM 2.5MG/0.5MG, 3 ML INLINE SCH ×6 (02:00→23:04)
[2018-05-04] MEDS: PIPERACILLIN/TAZO/PMX 3.375GM 50 ML IV SCH (02:39)
[2018-05-04 05:23] LABS: ALBUMIN 1.7 g/dL (3.4-5.0); ANION GAP 12 mmol/L (5-15); CALCIUM 6.6 mg/dL (8.5-10.1); CHLORIDE 114 mmol/L (98-107)
[2018-05-04 05:27] LABS: ALANINE AMINOTRANSFERASE 63 U/L (12-78); ALKALINE PHOSPHATASE 265 U/L (45-117); BILIRUBIN,TOTAL 3.1 mg/dL (0.2-1.0); CREATININE 1.46 mg/dL (0.55-1.02)
[2018-05-04] MEDS: LEVOTHYROXINE 50 MCG TABLET PO SCH (05:27)
[2018-05-04] MEDS: HYDROCORTISONE 100 MG INJ. IVPush SCH ×3 (05:27→20:54)
[2018-05-04] MEDS: INSULIN LISPRO 100 UNITS/ML, PEN SQ-INSULIN SCH ×5 (06:13→20:59)
[2018-05-04 07:05] LABS: MEAN CORPUSCULAR HEMOGLOBIN 26.5 pg (27.0-34.8); MEAN CORPUSCULAR HGB CONC 32.9 g/dL (32.4-35.8); MEAN CORPUSCULAR VOLUME 80.6 fL (80-100); PLATELET COUNT 89 x10^3/uL (130-400); RED BLOOD COUNT 3.28 x10^6/uL (3.82-5.3); RED CELL DISTRIBUTION WIDTH 27.6 % (9.6-15.2)
[2018-05-04 07:11] LABS: BASOPHILS # (AUTO) 0.01 x10^3/uL (0-0.1); BASOPHILS % (AUTO) 0 % (0-1); EOSINOPHILS # (AUTO) 0.01 x10^3/uL (0-0.4); EOSINOPHILS % (AUTO) 0 % (1-7); LYMPHOCYTES # (AUTO) 0.95 x10^3/uL (1-3.4); LYMPHOCYTES % (AUTO) 10 % (22-44); MD MORPH REVIEW ONLY; MONOCYTES % (AUTO) 2 % (2-9); NEUTROPHILS # (AUTO) 8.01 x10^3/uL (1.8-6.8); NEUTROPHILS % (AUTO) 87 % (42-75)
[2018-05-04 08:01] LABS: ANISOCYTOSIS 1+
[2018-05-04 08:02] LABS: <PLATELET ESTIMATE> DECREASED; <PLT MORPHOLOGY> NORMAL PLT MORPH; MICROCYTOSIS 1+; POLYCHROMASIA 1+; SPHEROCYTES 1+
[2018-05-04] MEDS ORDERED: SODIUM BICARBONATE 8.4% 150 MEQ in DEXTROSE 5% 1,000 ML IV SCH (08:30)
[2018-05-04] MEDS: LINEZOLID PMX 600MG/300ML 300 ML IV SCH ×2 (08:33→22:28)
[2018-05-04] MEDS: SODIUM ACETATE 50 MEQ in SODIUM CHLORIDE 0.45% 1,000 ML IV SCH ×2 (08:33→21:04)
[2018-05-04] MEDS: INSULIN GLARGINE 100 UNITS/ML, PEN SQ-INSULIN SCH ×2 (09:16→20:59)
[2018-05-04] MEDS: ALBUMIN HUMAN 25% 100 ML IV SCH ×2 (09:16→20:56)
[2018-05-04] MEDS: POTASSIUM CHLORIDE 10% 40 MEQ/30 ML UDC PO SCH ×2 (09:16→21:00)
[2018-05-04] MEDS: PANTOPRAZOLE 40 MG IV IVPush SCH ×2 (09:16→20:55)
[2018-05-04 09:51] LABS: HIT RESULT NEGATIVE (NEGATIVE)
[2018-05-04 10:46] LABS: RAPID INFLUENZA A Negative (Negative); RAPID INFLUENZA B Negative (Negative)
[2018-05-04] MEDS: MICAFUNGIN 100 MG in SODIUM CHLORIDE 0.9% 100 ML IV SCH (10:58)
[2018-05-04] MEDS ORDERED: MIDAZOLAM 1 MG/ML, 2ML IVPush ONE (11:00)
[2018-05-04] MEDS ORDERED: FENTANYL PF 2,500 MCG in SODIUM CHLORIDE 0.9% 200 ML IV PRN (11:00)
[2018-05-04] MEDS: FUROSEMIDE 20 MG/2 ML IV SCH ×2 (11:02→22:35)
[2018-05-04] MEDS: ERGOCALCIFEROL 50,000 UNIT CAPSULE PO SCH (12:24)
[2018-05-04 12:45] LABS: TRIGLYCERIDES 365 mg/dL (50-200)
[2018-05-04] MEDS: RIVAROXABAN 20 MG TABLET PO SCH (15:53)
[2018-05-04] MEDS: MIDAZOLAM HCL 50 MG in SODIUM CHLORIDE 0.9% 240 ML IV PRN (20:37)
[2018-05-04] MEDS: SIMVASTATIN 40 MG TABLET PO SCH (21:01)
[2018-05-04 22:57] LABS: ANION GAP 11 mmol/L (5-15); CALCIUM 6.7 mg/dL (8.5-10.1); CHLORIDE 114 mmol/L (98-107); CREATININE 1.46 mg/dL (0.55-1.02)
[2018-05-04] MEDS ORDERED: POTASSIUM CHLORIDE PMX 100 ML IV ONE (23:45)
[2018-05-05] VITALS (8 sets, daily range): BP systolic 102–126; BP diastolic 61–73
[2018-05-05] MEDS: KSCALE TO 4.0 IV SCH ×2 (00:04→06:49)
[2018-05-05] MEDS: ALBUTEROL/IPRATROPIUM 2.5MG/0.5MG, 3 ML INLINE SCH ×6 (03:00→23:00)
[2018-05-05] MEDS: HYDROCORTISONE 100 MG INJ. IVPush SCH ×3 (05:30→21:07)
[2018-05-05] MEDS: LEVOTHYROXINE 50 MCG TABLET PO SCH (05:30)
[2018-05-05 06:26] LABS: ANION GAP 11 mmol/L (5-15); CALCIUM 6.4 mg/dL (8.5-10.1); CHLORIDE 114 mmol/L (98-107); CREATININE 1.23 mg/dL (0.55-1.02)
[2018-05-05] MEDS ORDERED: POTASSIUM CHLORIDE PMX 100 ML IV ONE (07:00)
[2018-05-05 07:17] LABS: MEAN CORPUSCULAR HEMOGLOBIN 26.3 pg (27.0-34.8); MEAN CORPUSCULAR VOLUME 79.6 fL (80-100); MEAN PLATELET VOLUME 8.9 fL (7.4-10.4); PLATELET COUNT 60 x10^3/uL (130-400); RED BLOOD COUNT 2.86 x10^6/uL (3.82-5.3); RED CELL DISTRIBUTION WIDTH 27.5 % (9.6-15.2)
[2018-05-05 07:27] LABS: BASOPHILS % (AUTO) 0 % (0-1); EOSINOPHILS % (AUTO) 0 % (1-7); LYMPHOCYTES # (AUTO) 1.38 x10^3/uL (1-3.4); LYMPHOCYTES % (AUTO) 15 % (22-44); MD MORPH REVIEW ONLY; MONOCYTES % (AUTO) 1 % (2-9); NEUTROPHILS # (AUTO) 7.63 x10^3/uL (1.8-6.8); NEUTROPHILS % (AUTO) 84 % (42-75)
[2018-05-05 07:51] LABS: ANISOCYTOSIS 1+; MICROCYTOSIS 1+
[2018-05-05 07:52] LABS: <PLATELET ESTIMATE> DECREASED; <PLT MORPHOLOGY> NORMAL PLT MORPH; POLYCHROMASIA 1+; SPHEROCYTES 1+
[2018-05-05] MEDS: PANTOPRAZOLE 40 MG IV IVPush SCH ×2 (08:29→21:07)
[2018-05-05] MEDS: ALBUMIN HUMAN 25% 100 ML IV SCH ×2 (08:30→21:03)
[2018-05-05] MEDS: LINEZOLID PMX 600MG/300ML 300 ML IV SCH ×2 (08:31→21:04)
[2018-05-05] MEDS: INSULIN GLARGINE 100 UNITS/ML, PEN SQ-INSULIN SCH ×2 (08:35→21:12)
[2018-05-05] MEDS: INSULIN LISPRO 100 UNITS/ML, PEN SQ-INSULIN SCH ×3 (08:37→21:13)
[2018-05-05] MEDS ORDERED: CALCIUM GLUCONATE 4.6 MEQ in SODIUM CHLORIDE 0.9% 50 ML IV ONE (09:42)
[2018-05-05] MEDS: FUROSEMIDE 20 MG/2 ML IV SCH ×2 (09:53→22:41)
[2018-05-05] MEDS ORDERED: SODIUM ACETATE 50 MEQ in SODIUM CHLORIDE 0.45% 1,000 ML IV SCH (10:00)
[2018-05-05] MEDS: MICAFUNGIN 100 MG in SODIUM CHLORIDE 0.9% 100 ML IV SCH (10:46)
[2018-05-05] MEDS ORDERED: PHYTONADIONE 10 MG in SODIUM CHLORIDE 0.9% 50 ML IV ONE (15:30)
[2018-05-05 16:39] LABS: INTERNATIONAL NORMALIZED RATIO 1.36 (0.93-1.1); PROTHROMBIN TIME 14.2 Seconds (9.6-11.5)
[2018-05-05 17:20] LABS: ANION GAP 8 mmol/L (5-15); CALCIUM 6.8 mg/dL (8.5-10.1); CHLORIDE 112 mmol/L (98-107)
[2018-05-05 17:22] LABS: CREATININE 1.24 mg/dL (0.55-1.02)
[2018-05-05 17:34] LABS: MEAN CORPUSCULAR HGB CONC 33.1 g/dL (32.4-35.8); MEAN CORPUSCULAR VOLUME 81.7 fL (80-100); MEAN PLATELET VOLUME 8.4 fL (7.4-10.4); PLATELET COUNT 111 x10^3/uL (130-400); RED BLOOD COUNT 3.11 x10^6/uL (3.82-5.3); RED CELL DISTRIBUTION WIDTH 24.3 % (9.6-15.2)
[2018-05-05 18:06] LABS: BASOPHILS % (AUTO) 0 % (0-1); EOSINOPHILS # (AUTO) 0.01 x10^3/uL (0-0.4); EOSINOPHILS % (AUTO) 0 % (1-7); LYMPHOCYTES # (AUTO) 1.62 x10^3/uL (1-3.4); LYMPHOCYTES % (AUTO) 15 % (22-44); MD SCAN; MONOCYTES # (AUTO) 0.11 x10^3/uL (0.2-0.8); MONOCYTES % (AUTO) 1 % (2-9); NEUTROPHILS # (AUTO) 8.76 x10^3/uL (1.8-6.8); NEUTROPHILS % (AUTO) 83 % (42-75)
[2018-05-05] MEDS: MIDAZOLAM HCL 50 MG in SODIUM CHLORIDE 0.9% 240 ML IV PRN (21:03)
[2018-05-05] MEDS: SIMVASTATIN 40 MG TABLET PO SCH (21:06)
[2018-05-05] MEDS ORDERED: POTASSIUM CHLORIDE 20 MEQ TAB.ER.PRT PO ONE (22:30)
[2018-05-05 23:26] LABS: MEAN CORPUSCULAR HEMOGLOBIN 27.4 pg (27.0-34.8); MEAN CORPUSCULAR HGB CONC 34.2 g/dL (32.4-35.8); MEAN CORPUSCULAR VOLUME 80.3 fL (80-100); RED BLOOD COUNT 3.06 x10^6/uL (3.82-5.3); RED CELL DISTRIBUTION WIDTH 23.5 % (9.6-15.2)
[2018-05-05 23:42] LABS: MEAN PLATELET VOLUME 8.5 fL (7.4-10.4); PLATELET COUNT 104 x10^3/uL (130-400)
[2018-05-05 23:43] LABS: BASOPHILS # (AUTO) 0.02 x10^3/uL (0-0.1); BASOPHILS % (AUTO) 0 % (0-1); EOSINOPHILS # (AUTO) 0.01 x10^3/uL (0-0.4); EOSINOPHILS % (AUTO) 0 % (1-7); LYMPHOCYTES # (AUTO) 1.75 x10^3/uL (1-3.4); LYMPHOCYTES % (AUTO) 16 % (22-44); MD SCAN; MONOCYTES # (AUTO) 0.08 x10^3/uL (0.2-0.8); MONOCYTES % (AUTO) 1 % (2-9); NEUTROPHILS # (AUTO) 9.38 x10^3/uL (1.8-6.8); NEUTROPHILS % (AUTO) 84 % (42-75)
[2018-05-06] MEDS: INSULIN LISPRO 100 UNITS/ML, PEN SQ-INSULIN SCH ×4 (01:00→20:56)
[2018-05-06] MEDS: ALBUTEROL/IPRATROPIUM 2.5MG/0.5MG, 3 ML INLINE SCH ×6 (03:00→22:16)
[2018-05-06] MEDS: HYDROCORTISONE 100 MG INJ. IVPush SCH (04:28)
[2018-05-06 04:54] LABS: ANION GAP 8 mmol/L (5-15); CALCIUM 6.6 mg/dL (8.5-10.1); CHLORIDE 114 mmol/L (98-107); CREATININE 1.05 mg/dL (0.55-1.02); TRIGLYCERIDES 192 mg/dL (50-200)
[2018-05-06 05:11] LABS: MEAN CORPUSCULAR HEMOGLOBIN 27.3 pg (27.0-34.8); MEAN CORPUSCULAR HGB CONC 33.4 g/dL (32.4-35.8); MEAN CORPUSCULAR VOLUME 81.7 fL (80-100); RED BLOOD COUNT 3.13 x10^6/uL (3.82-5.3); RED CELL DISTRIBUTION WIDTH 23.3 % (9.6-15.2)
[2018-05-06] MEDS: LEVOTHYROXINE 50 MCG TABLET PO SCH (05:22)
[2018-05-06 06:05] LABS: MEAN PLATELET VOLUME 9.4 fL (7.4-10.4); PLATELET COUNT 92 x10^3/uL (130-400)
[2018-05-06 06:06] LABS: BASOPHILS # (AUTO) 0.02 x10^3/uL (0-0.1); BASOPHILS % (AUTO) 0 % (0-1); EOSINOPHILS % (AUTO) 0 % (1-7); LYMPHOCYTES % (AUTO) 15 % (22-44); MD SCAN; MONOCYTES % (AUTO) 1 % (2-9); NEUTROPHILS # (AUTO) 9.47 x10^3/uL (1.8-6.8); NEUTROPHILS % (AUTO) 84 % (42-75)
[2018-05-06] MEDS ORDERED: CALCIUM CHLORIDE 13.6 MEQ in SODIUM CHLORIDE 0.9% 100 ML IV ONE (07:30)
[2018-05-06] MEDS ORDERED: POTASSIUM CHLORIDE 40 MEQ in SODIUM CHLORIDE 0.9% 100 ML IV ONE (07:30)
[2018-05-06] MEDS ORDERED: MAGNESIUM SULFATE PMX 2GM/50ML 50 ML IV ONE (07:30)
[2018-05-06] MEDS: INSULIN GLARGINE 100 UNITS/ML, PEN SQ-INSULIN SCH ×2 (07:57→21:05)
[2018-05-06] MEDS: LINEZOLID PMX 600MG/300ML 300 ML IV SCH ×2 (08:29→20:58)
[2018-05-06] MEDS: QUETIAPINE 25MG TABLET NG SCH ×3 (09:11→21:01)
[2018-05-06] MEDS: ALBUMIN HUMAN 25% 100 ML IV SCH ×2 (09:11→20:58)
[2018-05-06] MEDS: PANTOPRAZOLE 40 MG IV IVPush SCH ×2 (09:11→21:03)
[2018-05-06 09:56] LABS: ANION GAP 7 mmol/L (5-15); CALCIUM 6.6 mg/dL (8.5-10.1); CHLORIDE 114 mmol/L (98-107); CREATININE 1.03 mg/dL (0.55-1.02)
[2018-05-06] MEDS: FUROSEMIDE 20 MG/2 ML IV SCH ×2 (10:36→22:26)
[2018-05-06] MEDS: MICAFUNGIN 100 MG in SODIUM CHLORIDE 0.9% 100 ML IV SCH (11:12)
[2018-05-06 12:01] LABS: MEAN CORPUSCULAR HEMOGLOBIN 27.3 pg (27.0-34.8); MEAN CORPUSCULAR HGB CONC 33.4 g/dL (32.4-35.8); MEAN CORPUSCULAR VOLUME 81.6 fL (80-100); RED BLOOD COUNT 3.06 x10^6/uL (3.82-5.3); RED CELL DISTRIBUTION WIDTH 23.4 % (9.6-15.2)
[2018-05-06 12:33] LABS: MD YES; MEAN PLATELET VOLUME 8.3 fL (7.4-10.4); PLATELET COUNT 83 x10^3/uL (130-400)
[2018-05-06 12:34] LABS: BAND#(MANUAL) 0.11 x10^3/uL; BANDS%(MANUAL) 1 % (0-7); LYMPH#(MANUAL) 2.02 x10^3/uL (1-3.4); LYMPHS% (MANUAL) 18 % (22-44); METAMYELOCYTES# (MANUAL) 0.11 x10^3/uL (0-0); METAMYELOCYTES% (MANUAL) 1 % (0-1); MONOS#(MANUAL) 0.34 x10^3/uL (0.3-2.7); MONOS% (MANUAL) 3 % (2-9); NRBC % (MANUAL) 4 % (0-1); SEG#(MANUAL) 8.62 x10^3/uL (1.8-6.8); SEGS% (MANUAL) 77 % (42-75)
[2018-05-06 12:35] LABS: BASOPHILLIC STIPPLING 1+; MICROCYTOSIS 1+; POLYCHROMASIA 1+
[2018-05-06 12:36] LABS: ANISOCYTOSIS 2+
[2018-05-06 12:37] LABS: <PLATELET ESTIMATE> DECREASED; <PLT MORPHOLOGY> NORMAL PLT MORPH
[2018-05-06] MEDS: METOCLOPRAMIDE 5 MG/ML, 2ML IVPush SCH ×2 (13:25→18:07)
[2018-05-06 18:45] LABS: BASOPHILS # (AUTO) 0.03 x10^3/uL (0-0.1); BASOPHILS % (AUTO) 0 % (0-1); EOSINOPHILS # (AUTO) 0.02 x10^3/uL (0-0.4); EOSINOPHILS % (AUTO) 0 % (1-7); LYMPHOCYTES # (AUTO) 2.27 x10^3/uL (1-3.4); LYMPHOCYTES % (AUTO) 16 % (22-44); MD MORPH REVIEW ONLY; MEAN CORPUSCULAR HEMOGLOBIN 27.3 pg (27.0-34.8); MEAN CORPUSCULAR HGB CONC 33.1 g/dL (32.4-35.8); MEAN CORPUSCULAR VOLUME 82.3 fL (80-100); MEAN PLATELET VOLUME 8.5 fL (7.4-10.4); MONOCYTES # (AUTO) 0.02 x10^3/uL (0.2-0.8); MONOCYTES % (AUTO) 0 % (2-9); NEUTROPHILS # (AUTO) 12.11 x10^3/uL (1.8-6.8); NEUTROPHILS % (AUTO) 84 % (42-75); PLATELET COUNT 97 x10^3/uL (130-400); RED BLOOD COUNT 3.38 x10^6/uL (3.82-5.3); RED CELL DISTRIBUTION WIDTH 22.8 % (9.6-15.2)
[2018-05-06 18:47] LABS: ANISOCYTOSIS 2+; MICROCYTOSIS 1+; POLYCHROMASIA 1+
[2018-05-06 18:48] LABS: <PLATELET ESTIMATE> DECREASED; <PLT MORPHOLOGY> NORMAL PLT MORPH
[2018-05-06] MEDS: SIMVASTATIN 40 MG TABLET PO SCH (21:03)
[2018-05-07] MEDS: METOCLOPRAMIDE 5 MG/ML, 2ML IVPush SCH ×4 (00:56→16:51)
[2018-05-07] MEDS: ALBUTEROL/IPRATROPIUM 2.5MG/0.5MG, 3 ML INLINE SCH ×6 (02:35→22:22)
[2018-05-07] MEDS: INSULIN LISPRO 100 UNITS/ML, PEN SQ-INSULIN SCH ×4 (03:00→20:55)
[2018-05-07 03:36] LABS: ANION GAP 11 mmol/L (5-15); CHLORIDE 110 mmol/L (98-107); CREATININE 1.06 mg/dL (0.55-1.02); MEAN CORPUSCULAR HEMOGLOBIN 27.3 pg (27.0-34.8); MEAN CORPUSCULAR HGB CONC 33.2 g/dL (32.4-35.8); MEAN CORPUSCULAR VOLUME 82.3 fL (80-100); MEAN PLATELET VOLUME 8.5 fL (7.4-10.4); PLATELET COUNT 91 x10^3/uL (130-400); RED BLOOD COUNT 3.27 x10^6/uL (3.82-5.3); RED CELL DISTRIBUTION WIDTH 21.8 % (9.6-15.2)
[2018-05-07 03:47] LABS: MD YES
[2018-05-07 03:49] LABS: ANISOCYTOSIS 2+; BAND#(MANUAL) 0.27 x10^3/uL; BANDS%(MANUAL) 2 % (0-7); LYMPH#(MANUAL) 4.29 x10^3/uL (1-3.4); LYMPHS% (MANUAL) 32 % (22-44); METAMYELOCYTES# (MANUAL) 0.27 x10^3/uL (0-0); METAMYELOCYTES% (MANUAL) 2 % (0-1); MICROCYTOSIS 1+; MONOS#(MANUAL) 0.13 x10^3/uL (0.3-2.7); MONOS% (MANUAL) 1 % (2-9); NRBC % (MANUAL) 3 % (0-1); SEG#(MANUAL) 8.44 x10^3/uL (1.8-6.8); SEGS% (MANUAL) 63 % (42-75)
[2018-05-07 03:50] LABS: <PLATELET ESTIMATE> DECREASED; <PLT MORPHOLOGY> NORMAL PLT MORPH; POLYCHROMASIA 1+; SMUDGE CELLS 1+; TOXIC GRAN 1+
[2018-05-07] MEDS ORDERED: POTASSIUM CHLORIDE 40 MEQ in SODIUM CHLORIDE 0.9% 100 ML IV ONE (04:30)
[2018-05-07] MEDS: LEVOTHYROXINE 50 MCG TABLET PO SCH (05:03)
[2018-05-07] MEDS ORDERED: KSCALE TO 4.5 IV SCH (07:30)
[2018-05-07] MEDS ORDERED: CALCIUM CHLORIDE 13.6 MEQ in SODIUM CHLORIDE 0.9% 100 ML IV ONE (07:30)
[2018-05-07] MEDS ORDERED: MAGNESIUM SULFATE PMX 2GM/50ML 50 ML IV ONE (07:30)
[2018-05-07] MEDS ORDERED: HYDROCORTISONE 100 MG INJ. IVPush SCH (09:00)
[2018-05-07] MEDS: ALBUMIN HUMAN 25% 100 ML IV SCH ×2 (09:13→21:02)
[2018-05-07] MEDS: FLUCONAZOLE 200 MG/100 ML 100 ML IV SCH (09:16)
[2018-05-07] MEDS: QUETIAPINE 25MG TABLET NG SCH ×3 (09:23→21:01)
[2018-05-07] MEDS: POTASSIUM CHLORIDE 10% 40 MEQ/30 ML UDC NG SCH ×3 (09:23→21:00)
[2018-05-07] MEDS: PANTOPRAZOLE 40 MG IV IVPush SCH ×2 (09:23→21:00)
[2018-05-07] MEDS: INSULIN GLARGINE 100 UNITS/ML, PEN SQ-INSULIN SCH ×2 (09:27→20:56)
[2018-05-07] MEDS: FUROSEMIDE 20 MG/2 ML IV SCH ×2 (10:26→22:55)
[2018-05-07] MEDS: LINEZOLID PMX 600MG/300ML 300 ML IV SCH ×2 (10:26→21:02)
[2018-05-07] MEDS ORDERED: FAMOTIDINE 20 MG/2 ML ONE (18:49)
[2018-05-07] MEDS: SIMVASTATIN 40 MG TABLET PO SCH (21:03)
[2018-05-07] MEDS: FENTANYL PF 100 MCG/2ML IVPush PRN ×2 (21:04→22:56)
[2018-05-08] MEDS: ALBUTEROL/IPRATROPIUM 2.5MG/0.5MG, 3 ML INLINE SCH ×6 (02:22→23:06)
[2018-05-08] MEDS: INSULIN LISPRO 100 UNITS/ML, PEN SQ-INSULIN SCH ×4 (03:51→21:00)
[2018-05-08] MEDS: FENTANYL PF 100 MCG/2ML IVPush PRN ×2 (04:04→18:58)
[2018-05-08 04:39] LABS: MEAN CORPUSCULAR HEMOGLOBIN 27.5 pg (27.0-34.8); MEAN CORPUSCULAR HGB CONC 32.7 g/dL (32.4-35.8); MEAN CORPUSCULAR VOLUME 84.2 fL (80-100); RED BLOOD COUNT 3.09 x10^6/uL (3.82-5.3); RED CELL DISTRIBUTION WIDTH 21.4 % (9.6-15.2)
[2018-05-08 04:44] LABS: ANION GAP 12 mmol/L (5-15); CALCIUM 7.6 mg/dL (8.5-10.1); CHLORIDE 113 mmol/L (98-107); CREATININE 1.06 mg/dL (0.55-1.02)
[2018-05-08 05:08] LABS: PLATELET COUNT 95 x10^3/uL (130-400)
[2018-05-08 05:09] LABS: MD YES; MEAN PLATELET VOLUME 9.3 fL (7.4-10.4)
[2018-05-08 05:12] LABS: LYMPH#(MANUAL) 2.09 x10^3/uL (1-3.4); LYMPHS% (MANUAL) 18 % (22-44); NRBC % (MANUAL) 2 % (0-1)
[2018-05-08 05:13] LABS: ANISOCYTOSIS 2+; BAND#(MANUAL) 0.23 x10^3/uL; BANDS%(MANUAL) 2 % (0-7); METAMYELOCYTES# (MANUAL) 0.12 x10^3/uL (0-0); METAMYELOCYTES% (MANUAL) 1 % (0-1); MICROCYTOSIS 1+; MYELOCYTES# (MANUAL) 0.12 x10^3/uL (0-0); MYELOCYTES% (MANUAL) 1 % (0-0); SEG#(MANUAL) 9.05 x10^3/uL (1.8-6.8); SEGS% (MANUAL) 78 % (42-75)
[2018-05-08 05:14] LABS: <PLATELET ESTIMATE> DECREASED; <PLT MORPHOLOGY> NORMAL PLT MORPH; POLYCHROMASIA 1+; SMUDGE CELLS 1+; TOXIC GRAN 1+
[2018-05-08] MEDS: LEVOTHYROXINE 50 MCG TABLET PO SCH (05:21)
[2018-05-08] MEDS: METOCLOPRAMIDE 5 MG/ML, 2ML IVPush SCH ×2 (06:00)
[2018-05-08] MEDS: FLUCONAZOLE 200 MG/100 ML 100 ML IV SCH (07:35)
[2018-05-08] MEDS: ALBUMIN HUMAN 25% 100 ML IV SCH ×2 (08:31→21:24)
[2018-05-08] MEDS: QUETIAPINE 25MG TABLET NG SCH ×3 (08:33→21:30)
[2018-05-08] MEDS: INSULIN GLARGINE 100 UNITS/ML, PEN SQ-INSULIN SCH ×2 (08:33→21:00)
[2018-05-08] MEDS: POTASSIUM CHLORIDE 10% 40 MEQ/30 ML UDC NG SCH ×3 (08:34→21:25)
[2018-05-08] MEDS: PANTOPRAZOLE 40 MG IV IVPush SCH ×2 (08:34→21:27)
[2018-05-08] MEDS: LINEZOLID PMX 600MG/300ML 300 ML IV SCH ×2 (09:06→22:27)
[2018-05-08] MEDS: METOLAZONE 5 MG TABLET PO SCH ×2 (10:25→21:27)
[2018-05-08] MEDS: FUROSEMIDE 20 MG/2 ML IV SCH ×3 (10:26→23:28)
[2018-05-08] MEDS ORDERED: PANCRELIPASE 24,000 CAPSULE.DR PO SCH (10:30)
[2018-05-08] MEDS: LIPASE/PROTEASE/AMYLASE TAB NG SCH ×2 (11:39→19:20)
[2018-05-08] MEDS ORDERED: SODIUM BICARBONATE 1 MEQ/ML, 50ML VIAL ONE (20:09)
[2018-05-08] MEDS ORDERED: SODIUM BICARB 8.4%, 50ML SYRINGE IVPush ONE ×2 (20:30)
[2018-05-08 20:52] LABS: ANION GAP 23 mmol/L (5-15); CALCIUM 8.6 mg/dL (8.5-10.1); CHLORIDE 110 mmol/L (98-107)
[2018-05-08] MEDS ORDERED: DEXTROSE 50%, 50ML SYRINGE ONE (21:03)
[2018-05-08] MEDS: SIMVASTATIN 40 MG TABLET PO SCH (21:29)
[2018-05-08] MEDS ORDERED: GLUCAGON 1 MG IM PRN (21:30)
[2018-05-08] MEDS ORDERED: DEXTROSE 4 GM TAB.CHEW PO PRN (21:30)
[2018-05-08] MEDS: NOREPINEPHRINE 4 MG in SODIUM CHLORIDE 0.9% 246 ML IV PRN (23:27)
[2018-05-09] MEDS ORDERED: SODIUM BICARB 8.4%, 50ML SYRINGE IVPush ONE (02:00)
[2018-05-09] MEDS: ALBUTEROL/IPRATROPIUM 2.5MG/0.5MG, 3 ML INLINE SCH ×6 (02:29→22:35)
[2018-05-09] MEDS: INSULIN LISPRO 100 UNITS/ML, PEN SQ-INSULIN SCH ×4 (03:00→20:53)
[2018-05-09] MEDS: LIPASE/PROTEASE/AMYLASE TAB NG SCH ×3 (03:42→19:00)
[2018-05-09] MEDS: DEXTROSE 50%, 50ML SYRINGE IVPush PRN ×2 (04:10→14:32)
[2018-05-09 04:46] LABS: ANION GAP 22 mmol/L (5-15); CALCIUM 8.4 mg/dL (8.5-10.1); CHLORIDE 107 mmol/L (98-107)
[2018-05-09 04:47] LABS: CREATININE 1.41 mg/dL (0.55-1.02)
[2018-05-09 04:58] LABS: BASOPHILS # (AUTO) 0.01 x10^3/uL (0-0.1); BASOPHILS % (AUTO) 0 % (0-1); EOSINOPHILS # (AUTO) 0.02 x10^3/uL (0-0.4); EOSINOPHILS % (AUTO) 0 % (1-7); LYMPHOCYTES # (AUTO) 2.65 x10^3/uL (1-3.4); LYMPHOCYTES % (AUTO) 19 % (22-44); MD SCAN; MEAN CORPUSCULAR VOLUME 84.8 fL (80-100); MEAN PLATELET VOLUME 9.1 fL (7.4-10.4); MONOCYTES # (AUTO) 0.03 x10^3/uL (0.2-0.8); MONOCYTES % (AUTO) 0 % (2-9); NEUTROPHILS # (AUTO) 11.56 x10^3/uL (1.8-6.8); NEUTROPHILS % (AUTO) 81 % (42-75); PLATELET COUNT 82 x10^3/uL (130-400); RED BLOOD COUNT 2.67 x10^6/uL (3.82-5.3)
[2018-05-09] MEDS: LEVOTHYROXINE 50 MCG TABLET PO SCH (05:11)
[2018-05-09] MEDS: FLUCONAZOLE 200 MG/100 ML 100 ML IV SCH (07:37)
[2018-05-09] MEDS: INSULIN GLARGINE 100 UNITS/ML, PEN SQ-INSULIN SCH ×2 (07:44→21:00)
[2018-05-09] MEDS: METOLAZONE 5 MG TABLET PO SCH (09:00)
[2018-05-09] MEDS: QUETIAPINE 25MG TABLET NG SCH (09:00)
[2018-05-09] MEDS: POTASSIUM CHLORIDE 10% 40 MEQ/30 ML UDC NG SCH (09:00)
[2018-05-09 09:15] LABS: MEAN CORPUSCULAR HEMOGLOBIN 27.9 pg (27.0-34.8); MEAN CORPUSCULAR HGB CONC 33.3 g/dL (32.4-35.8); MEAN CORPUSCULAR VOLUME 83.9 fL (80-100); MEAN PLATELET VOLUME 8.9 fL (7.4-10.4); PLATELET COUNT 90 x10^3/uL (130-400); RED BLOOD COUNT 3.01 x10^6/uL (3.82-5.3)
[2018-05-09 09:16] LABS: LYMPH#(MANUAL) 2.79 x10^3/uL (1-3.4); LYMPHS% (MANUAL) 17 % (22-44); MD YES; SEGS% (MANUAL) 83 % (42-75)
[2018-05-09 09:17] LABS: ANISOCYTOSIS 2+; BASOPHILLIC STIPPLING 1+; MICROCYTOSIS 2+; TOXIC GRAN 2+
[2018-05-09 09:18] LABS: <PLATELET ESTIMATE> DECREASED; <PLT MORPHOLOGY> NORMAL PLT MORPH
[2018-05-09 09:19] LABS: LARGE PLATELETS 1+
[2018-05-09] MEDS: PANTOPRAZOLE 40 MG IV IVPush SCH ×2 (09:35→20:52)
[2018-05-09] MEDS: ALBUMIN HUMAN 25% 100 ML IV SCH ×2 (09:35→20:51)
[2018-05-09] MEDS: SODIUM CHLORIDE FLUSH 10ML SYR IVF SCH ×2 (09:36→20:52)
[2018-05-09] MEDS: LINEZOLID PMX 600MG/300ML 300 ML IV SCH ×2 (10:21→22:03)
[2018-05-09] MEDS: FUROSEMIDE 20 MG/2 ML IV SCH ×2 (10:22→22:33)
[2018-05-09] MEDS ORDERED: DEXTROSE 5% 1,000 ML IV SCH (12:00)
[2018-05-09] MEDS: SIMVASTATIN 40 MG TABLET PO SCH (20:52)
[2018-05-10] MEDS: ALBUTEROL/IPRATROPIUM 2.5MG/0.5MG, 3 ML INLINE SCH ×6 (02:12→23:00)
[2018-05-10] MEDS: INSULIN LISPRO 100 UNITS/ML, PEN SQ-INSULIN SCH ×4 (03:00→21:00)
[2018-05-10] MEDS: LIPASE/PROTEASE/AMYLASE TAB NG SCH ×3 (04:56→19:42)
[2018-05-10 05:23] LABS: CHLORIDE 102 mmol/L (98-107); MEAN CORPUSCULAR HEMOGLOBIN 28.6 pg (27.0-34.8); MEAN CORPUSCULAR VOLUME 84.3 fL (80-100); RED BLOOD COUNT 2.63 x10^6/uL (3.82-5.3)
[2018-05-10 05:38] LABS: ALANINE AMINOTRANSFERASE 367 U/L (12-78); ALBUMIN 3.3 g/dL (3.4-5.0); ALKALINE PHOSPHATASE 137 U/L (45-117); ANION GAP 22 mmol/L (5-15); BILIRUBIN,TOTAL 7.7 mg/dL (0.2-1.0); CALCIUM 8.2 mg/dL (8.5-10.1); TOTAL PROTEIN 4.6 g/dL (6.4-8.2)
[2018-05-10] MEDS: LEVOTHYROXINE 50 MCG TABLET PO SCH (05:44)
[2018-05-10 05:56] LABS: MD YES; MEAN PLATELET VOLUME 9.8 fL (7.4-10.4); PLATELET COUNT 79 x10^3/uL (130-400)
[2018-05-10 05:57] LABS: BAND#(MANUAL) 0.15 x10^3/uL; BANDS%(MANUAL) 1 % (0-7); LYMPH#(MANUAL) 3.34 x10^3/uL (1-3.4); LYMPHS% (MANUAL) 23 % (22-44); SEG#(MANUAL) 11.02 x10^3/uL (1.8-6.8); SEGS% (MANUAL) 76 % (42-75)
[2018-05-10 05:58] LABS: ANISOCYTOSIS 2+; MICROCYTOSIS 1+
[2018-05-10 05:59] LABS: <PLATELET ESTIMATE> DECREASED; <PLT MORPHOLOGY> NORMAL PLT MORPH; TOXIC GRAN 1+
[2018-05-10] MEDS ORDERED: POTASSIUM CHLORIDE 40 MEQ in SODIUM CHLORIDE 0.9% 100 ML IV ONE (07:30)
[2018-05-10] MEDS: INSULIN GLARGINE 100 UNITS/ML, PEN SQ-INSULIN SCH ×2 (09:00→21:00)
[2018-05-10] MEDS: FUROSEMIDE 20 MG/2 ML IV SCH ×2 (09:03→23:07)
[2018-05-10] MEDS: NOREPINEPHRINE 4 MG in SODIUM CHLORIDE 0.9% 246 ML IV PRN (09:03)
[2018-05-10] MEDS: PANTOPRAZOLE 40 MG IV IVPush SCH ×2 (09:03→21:02)
[2018-05-10] MEDS: ALBUMIN HUMAN 25% 100 ML IV SCH ×2 (09:04→21:02)
[2018-05-10] MEDS: SODIUM CHLORIDE FLUSH 10ML SYR IVF SCH ×2 (09:11→21:01)
[2018-05-10] MEDS ORDERED: POTASSIUM CHLORIDE PMX 100 ML IV PRN (10:30)
[2018-05-10] MEDS: LINEZOLID PMX 600MG/300ML 300 ML IV SCH ×2 (10:37→22:18)
[2018-05-10] MEDS: FLUCONAZOLE 200 MG/100 ML 100 ML IV SCH (10:37)
[2018-05-10] MEDS ORDERED: POTASSIUM PHOSPHATE 44 MEQ in SODIUM CHLORIDE 0.9% 500 ML IV ONE (11:00)
[2018-05-10] MEDS: DEXTROSE 5% 1,000 ML IV SCH (13:50)
[2018-05-10] MEDS: POTASSIUM CHLORIDE 40 MEQ in SODIUM CHLORIDE 0.9% 100 ML IV PRN (18:42)
[2018-05-10] MEDS: SIMVASTATIN 40 MG TABLET PO SCH ×2 (21:00→21:02)
[2018-05-11] MEDS: ALBUTEROL/IPRATROPIUM 2.5MG/0.5MG, 3 ML INLINE SCH ×6 (03:00→23:00)
[2018-05-11] MEDS: INSULIN LISPRO 100 UNITS/ML, PEN SQ-INSULIN SCH ×4 (03:00→21:00)
[2018-05-11] MEDS: LIPASE/PROTEASE/AMYLASE TAB NG SCH ×3 (03:05→19:31)
[2018-05-11 05:26] LABS: MEAN CORPUSCULAR HEMOGLOBIN 27.9 pg (27.0-34.8); MEAN CORPUSCULAR HGB CONC 33.1 g/dL (32.4-35.8); MEAN CORPUSCULAR VOLUME 84.2 fL (80-100); RED BLOOD COUNT 2.66 x10^6/uL (3.82-5.3); RED CELL DISTRIBUTION WIDTH 20.3 % (9.6-15.2)
[2018-05-11 05:33] LABS: ALANINE AMINOTRANSFERASE 774 U/L (12-78); ALBUMIN 3.1 g/dL (3.4-5.0); ANION GAP 18 mmol/L (5-15); CALCIUM 7.5 mg/dL (8.5-10.1); CHLORIDE 96 mmol/L (98-107)
[2018-05-11 05:42] LABS: ALKALINE PHOSPHATASE 124 U/L (45-117); CREATININE 1.43 mg/dL (0.55-1.02); TOTAL PROTEIN 4.5 g/dL (6.4-8.2)
[2018-05-11 05:54] LABS: MEAN PLATELET VOLUME 9.3 fL (7.4-10.4); PLATELET COUNT 69 x10^3/uL (130-400)
[2018-05-11 05:55] LABS: MD YES
[2018-05-11 05:58] LABS: BAND#(MANUAL) 1.15 x10^3/uL; BANDS%(MANUAL) 8 % (0-7); EOS#(MANUAL) 0.14 x10^3/uL (0.0-0.4); EOS% (MANUAL) 1 % (1-7); LYMPH#(MANUAL) 1.58 x10^3/uL (1-3.4); LYMPHS% (MANUAL) 11 % (22-44); SEG#(MANUAL) 11.52 x10^3/uL (1.8-6.8); SEGS% (MANUAL) 80 % (42-75)
[2018-05-11 06:00] LABS: ANISOCYTOSIS 1+
[2018-05-11 06:01] LABS: <PLATELET ESTIMATE> DECREASED; TOXIC GRAN 1+
[2018-05-11 06:02] LABS: <PLT MORPHOLOGY> NORMAL PLT MORPH
[2018-05-11] MEDS: POTASSIUM CHLORIDE 40 MEQ in SODIUM CHLORIDE 0.9% 100 ML IV PRN ×2 (06:09→23:21)
[2018-05-11] MEDS: LEVOTHYROXINE 50 MCG TABLET PO SCH (06:13)
[2018-05-11] MEDS ORDERED: MAGNESIUM SULFATE IV ONE (07:30)
[2018-05-11] MEDS ORDERED: MAGNESIUM SULFATE PMX IV ONE (07:30)
[2018-05-11] MEDS: DEXTROSE 5% 1,000 ML IV SCH ×3 (07:30→18:00)
[2018-05-11] MEDS: FLUCONAZOLE 200 MG/100 ML 100 ML IV SCH (08:48)
[2018-05-11] MEDS: PANTOPRAZOLE 40 MG IV IVPush SCH ×2 (09:00→21:00)
[2018-05-11] MEDS: INSULIN GLARGINE 100 UNITS/ML, PEN SQ-INSULIN SCH ×2 (09:00→21:00)
[2018-05-11] MEDS: LINEZOLID PMX 600MG/300ML 300 ML IV SCH ×2 (10:55→21:21)
[2018-05-11] MEDS: SODIUM CHLORIDE FLUSH 10ML SYR IVF SCH ×2 (10:56→21:22)
[2018-05-11] MEDS: ALBUMIN HUMAN 25% 100 ML IV SCH ×2 (12:34→22:23)
[2018-05-11] MEDS: FUROSEMIDE 20 MG/2 ML IV SCH (14:14)
[2018-05-11] MEDS: ERGOCALCIFEROL 50,000 UNIT CAPSULE PO SCH (14:15)
[2018-05-12] MEDS: FUROSEMIDE 20 MG/2 ML IV SCH (00:02)
[2018-05-12] MEDS: INSULIN LISPRO 100 UNITS/ML, PEN SQ-INSULIN SCH ×4 (03:00→21:00)
[2018-05-12] MEDS: ALBUTEROL/IPRATROPIUM 2.5MG/0.5MG, 3 ML INLINE SCH ×6 (03:00→23:01)
[2018-05-12] MEDS: LIPASE/PROTEASE/AMYLASE TAB NG SCH ×3 (03:13→20:00)
[2018-05-12] MEDS: NOREPINEPHRINE 4 MG in SODIUM CHLORIDE 0.9% 246 ML IV PRN (04:08)
[2018-05-12 05:19] LABS: MEAN CORPUSCULAR HEMOGLOBIN 28.1 pg (27.0-34.8); MEAN CORPUSCULAR HGB CONC 33.7 g/dL (32.4-35.8); MEAN CORPUSCULAR VOLUME 83.5 fL (80-100); MEAN PLATELET VOLUME 9.3 fL (7.4-10.4); RED BLOOD COUNT 2.35 x10^6/uL (3.82-5.3); RED CELL DISTRIBUTION WIDTH 19.1 % (9.6-15.2)
[2018-05-12 05:23] LABS: PLATELET COUNT 45 x10^3/uL (130-400)
[2018-05-12 05:29] LABS: ANION GAP 19 mmol/L (5-15); CALCIUM 7.5 mg/dL (8.5-10.1); CHLORIDE 94 mmol/L (98-107); CREATININE 1.29 mg/dL (0.55-1.02)
[2018-05-12 05:34] LABS: BASOPHILS # (AUTO) 0.05 x10^3/uL (0-0.1); BASOPHILS % (AUTO) 0 % (0-1); EOSINOPHILS # (AUTO) 0.14 x10^3/uL (0-0.4); EOSINOPHILS % (AUTO) 1 % (1-7); LYMPHOCYTES # (AUTO) 2.01 x10^3/uL (1-3.4); LYMPHOCYTES % (AUTO) 14 % (22-44); MD SCAN; MONOCYTES # (AUTO) 0.04 x10^3/uL (0.2-0.8); MONOCYTES % (AUTO) 0 % (2-9); NEUTROPHILS # (AUTO) 12.11 x10^3/uL (1.8-6.8); NEUTROPHILS % (AUTO) 84 % (42-75)
[2018-05-12 06:10] LABS: HEMOGLOBIN A1C 5.6 % (4.2-6.3)
[2018-05-12] MEDS: LEVOTHYROXINE 50 MCG TABLET PO SCH (06:24)
[2018-05-12] MEDS: FLUCONAZOLE 200 MG/100 ML 100 ML IV SCH (07:54)
[2018-05-12] MEDS: POTASSIUM CHLORIDE 40 MEQ in SODIUM CHLORIDE 0.9% 100 ML IV PRN (07:54)
[2018-05-12 08:42] LABS: ALANINE AMINOTRANSFERASE 565 U/L (12-78); ALBUMIN 3.4 g/dL (3.4-5.0)
[2018-05-12 08:44] LABS: ALKALINE PHOSPHATASE 120 U/L (45-117); BILIRUBIN,TOTAL 9.4 mg/dL (0.2-1.0); TOTAL PROTEIN 4.6 g/dL (6.4-8.2)
[2018-05-12 08:47] VITALS: BP 102/59
[2018-05-12] MEDS: INSULIN GLARGINE 100 UNITS/ML, PEN SQ-INSULIN SCH ×2 (09:00→21:00)
[2018-05-12 09:02] VITALS: BP 97/53
[2018-05-12] MEDS: LINEZOLID PMX 600MG/300ML 300 ML IV SCH ×2 (09:08→21:05)
[2018-05-12] MEDS: PANTOPRAZOLE 40 MG IV IVPush SCH ×2 (09:08→21:05)
[2018-05-12] MEDS: SODIUM CHLORIDE FLUSH 10ML SYR IVF SCH ×2 (09:09→20:01)
[2018-05-12 11:40] VITALS: BP 100/69
[2018-05-12] MEDS: ALBUMIN HUMAN 25% 100 ML IV SCH ×2 (14:09→22:43)
[2018-05-12] MEDS: DEXTROSE 5% 1,000 ML IV SCH (15:55)
[2018-05-12] MEDS ORDERED: POTASSIUM CHLORIDE PMX 100 ML IV ONE (17:00)
[2018-05-13] MEDS: NOREPINEPHRINE 4 MG in SODIUM CHLORIDE 0.9% 246 ML IV PRN (02:46)
[2018-05-13] MEDS: DEXTROSE 5% 1,000 ML IV SCH (02:47)
[2018-05-13] MEDS: ALBUTEROL/IPRATROPIUM 2.5MG/0.5MG, 3 ML INLINE SCH ×6 (03:00→22:19)
[2018-05-13] MEDS: INSULIN LISPRO 100 UNITS/ML, PEN SQ-INSULIN SCH ×4 (03:00→21:00)
[2018-05-13] MEDS: LIPASE/PROTEASE/AMYLASE TAB NG SCH ×3 (03:18→19:51)
[2018-05-13] MEDS: LEVOTHYROXINE 50 MCG TABLET PO SCH (05:47)
[2018-05-13 05:56] LABS: CALCIUM 7.9 mg/dL (8.5-10.1); CHLORIDE 91 mmol/L (98-107)
[2018-05-13 06:02] LABS: ALANINE AMINOTRANSFERASE 344 U/L (12-78); ALBUMIN 3.3 g/dL (3.4-5.0); ALKALINE PHOSPHATASE 132 U/L (45-117); ANION GAP 17 mmol/L (5-15); BILIRUBIN,TOTAL 11.6 mg/dL (0.2-1.0); TOTAL PROTEIN 4.6 g/dL (6.4-8.2)
[2018-05-13 06:12] LABS: MEAN CORPUSCULAR HEMOGLOBIN 29.5 pg (27.0-34.8); MEAN CORPUSCULAR HGB CONC 35.1 g/dL (32.4-35.8); MEAN CORPUSCULAR VOLUME 84.1 fL (80-100); RED BLOOD COUNT 3.63 x10^6/uL (3.82-5.3); RED CELL DISTRIBUTION WIDTH 16.4 % (9.6-15.2)
[2018-05-13 06:31] LABS: MD YES
[2018-05-13 06:32] LABS: MEAN PLATELET VOLUME 9.9 fL (7.4-10.4)
[2018-05-13 06:33] LABS: BANDS%(MANUAL) 3 % (0-7); EOS#(MANUAL) 0.26 x10^3/uL (0.0-0.4); EOS% (MANUAL) 2 % (1-7); LYMPH#(MANUAL) 1.06 x10^3/uL (1-3.4); LYMPHS% (MANUAL) 8 % (22-44); MONOS#(MANUAL) 0.26 x10^3/uL (0.3-2.7); MONOS% (MANUAL) 2 % (2-9); SEG#(MANUAL) 11.22 x10^3/uL (1.8-6.8); SEGS% (MANUAL) 85 % (42-75)
[2018-05-13 06:34] LABS: <PLATELET ESTIMATE> DECREASED; ANISOCYTOSIS 1+; LARGE PLATELETS 1+; PLATELET COUNT 28 x10^3/uL (130-400); PMNS WITH VACUOLES 1+; TOXIC GRAN 1+
[2018-05-13 06:35] LABS: MICROCYTOSIS 1+
[2018-05-13] MEDS ORDERED: POTASSIUM PHOSPHATE 44 MEQ in SODIUM CHLORIDE 0.9% 500 ML IV ONE (08:30)
[2018-05-13] MEDS ORDERED: POTASSIUM CHLORIDE 10% 40 MEQ/30 ML UDC PO ONE (08:30)
[2018-05-13] MEDS: FLUCONAZOLE 200 MG/100 ML 100 ML IV SCH (08:36)
[2018-05-13] MEDS: SODIUM CHLORIDE FLUSH 10ML SYR IVF SCH ×2 (08:37→21:34)
[2018-05-13] MEDS: INSULIN GLARGINE 100 UNITS/ML, PEN SQ-INSULIN SCH ×2 (09:00→21:00)
[2018-05-13] MEDS: LINEZOLID PMX 600MG/300ML 300 ML IV SCH ×2 (09:55→21:34)
[2018-05-13] MEDS: PANTOPRAZOLE 40 MG IV IVPush SCH ×2 (11:13→21:34)
[2018-05-13] MEDS: ALBUMIN HUMAN 25% 100 ML IV SCH ×2 (11:14→23:15)
[2018-05-14] MEDS: NOREPINEPHRINE 4 MG in SODIUM CHLORIDE 0.9% 246 ML IV PRN (00:07)
[2018-05-14] MEDS: INSULIN LISPRO 100 UNITS/ML, PEN SQ-INSULIN SCH ×4 (03:00→20:27)
[2018-05-14] MEDS: ALBUTEROL/IPRATROPIUM 2.5MG/0.5MG, 3 ML INLINE SCH ×6 (03:11→23:00)
[2018-05-14] MEDS: LIPASE/PROTEASE/AMYLASE TAB NG SCH ×2 (04:18→14:22)
[2018-05-14 04:53] LABS: INTERNATIONAL NORMALIZED RATIO 1.48 (0.93-1.1); PROTHROMBIN TIME 15.5 Seconds (9.6-11.5)
[2018-05-14 04:57] LABS: ALBUMIN 3.6 g/dL (3.4-5.0); ANION GAP 17 mmol/L (5-15); CHLORIDE 94 mmol/L (98-107); MEAN CORPUSCULAR HEMOGLOBIN 29.5 pg (27.0-34.8); MEAN CORPUSCULAR HGB CONC 34.6 g/dL (32.4-35.8); MEAN CORPUSCULAR VOLUME 85.2 fL (80-100); RED BLOOD COUNT 3.62 x10^6/uL (3.82-5.3); RED CELL DISTRIBUTION WIDTH 16.5 % (9.6-15.2)
[2018-05-14 05:01] LABS: ALANINE AMINOTRANSFERASE 226 U/L (12-78); ALKALINE PHOSPHATASE 183 U/L (45-117); BILIRUBIN,TOTAL 13.6 mg/dL (0.2-1.0); CREATININE 1.02 mg/dL (0.55-1.02); TOTAL PROTEIN 4.8 g/dL (6.4-8.2)
[2018-05-14 05:47] LABS: MD YES
[2018-05-14 05:48] LABS: BASOPHILS # (AUTO) 0.07 x10^3/uL (0-0.1); BASOPHILS % (AUTO) 1 % (0-1); EOSINOPHILS # (AUTO) 0.11 x10^3/uL (0-0.4); EOSINOPHILS % (AUTO) 1 % (1-7); LYMPHOCYTES % (AUTO) 14 % (22-44); MEAN PLATELET VOLUME 10.7 fL (7.4-10.4); MONOCYTES % (AUTO) 1 % (2-9); NEUTROPHILS # (AUTO) 10.72 x10^3/uL (1.8-6.8); NEUTROPHILS % (AUTO) 84 % (42-75)
[2018-05-14 05:51] LABS: PLATELET COUNT 17 x10^3/uL (130-400)
[2018-05-14 06:03] LABS: <PLATELET ESTIMATE> DECREASED; <PLT MORPHOLOGY> NORMAL PLT MORPH; ANISOCYTOSIS 1+; BAND#(MANUAL) 0.26 x10^3/uL; BANDS%(MANUAL) 2 % (0-7); EOS#(MANUAL) 0.13 x10^3/uL (0.0-0.4); EOS% (MANUAL) 1 % (1-7); LYMPH#(MANUAL) 2.56 x10^3/uL (1-3.4); LYMPHS% (MANUAL) 20 % (22-44); MICROCYTOSIS 1+; MONOS#(MANUAL) 0.38 x10^3/uL (0.3-2.7); MONOS% (MANUAL) 3 % (2-9); SEG#(MANUAL) 9.47 x10^3/uL (1.8-6.8); SEGS% (MANUAL) 74 % (42-75); SPHEROCYTES 1+; TOXIC GRAN 2+
[2018-05-14] MEDS: LEVOTHYROXINE 50 MCG TABLET PO SCH (06:29)
[2018-05-14] MEDS ORDERED: MAGNESIUM SULFATE PMX 2GM/50ML 50 ML IV ONE (08:30)
[2018-05-14 08:48] LABS: BILIRUBIN, DIRECT 8.3 mg/dL (0.1-0.2); BILIRUBIN,INDIRECT 5.5 mg/dL (0.0-2.0); BILIRUBIN,TOTAL 13.8 mg/dL (0.2-1.0)
[2018-05-14] MEDS: INSULIN GLARGINE 100 UNITS/ML, PEN SQ-INSULIN SCH ×2 (09:00→20:27)
[2018-05-14] MEDS: PANTOPRAZOLE 40 MG IV IVPush SCH ×2 (09:34→20:22)
[2018-05-14] MEDS: LINEZOLID PMX 600MG/300ML 300 ML IV SCH ×2 (09:34→20:22)
[2018-05-14] MEDS: SODIUM CHLORIDE FLUSH 10ML SYR IVF SCH ×2 (09:35→20:22)
[2018-05-14] MEDS: ALBUMIN HUMAN 25% 100 ML IV SCH ×2 (10:30→22:19)
[2018-05-14] MEDS: OCTREOTIDE 50 MCG/ML, 1ML (0.05MG/ML) SQ SCH ×2 (16:22→20:23)
[2018-05-15] MEDS: NOREPINEPHRINE 4 MG in SODIUM CHLORIDE 0.9% 246 ML IV PRN ×2 (01:53→16:31)
[2018-05-15] MEDS: ALBUTEROL/IPRATROPIUM 2.5MG/0.5MG, 3 ML INLINE SCH ×6 (02:20→23:00)
[2018-05-15] MEDS: INSULIN LISPRO 100 UNITS/ML, PEN SQ-INSULIN SCH ×4 (03:00→21:00)
[2018-05-15 03:47] LABS: MEAN CORPUSCULAR HEMOGLOBIN 29.4 pg (27.0-34.8); MEAN CORPUSCULAR HGB CONC 34.2 g/dL (32.4-35.8); MEAN CORPUSCULAR VOLUME 85.9 fL (80-100); MEAN PLATELET VOLUME 10.5 fL (7.4-10.4); RED BLOOD COUNT 3.29 x10^6/uL (3.82-5.3); RED CELL DISTRIBUTION WIDTH 16.4 % (9.6-15.2)
[2018-05-15 03:49] LABS: PLATELET COUNT 19 x10^3/uL (130-400)
[2018-05-15 03:55] LABS: ANION GAP 18 mmol/L (5-15); CHLORIDE 95 mmol/L (98-107)
[2018-05-15 03:56] LABS: CREATININE 1.09 mg/dL (0.55-1.02)
[2018-05-15 04:33] LABS: BASOPHILS # (AUTO) 0.02 x10^3/uL (0-0.1); BASOPHILS % (AUTO) 0 % (0-1); EOSINOPHILS # (AUTO) 0.18 x10^3/uL (0-0.4); EOSINOPHILS % (AUTO) 2 % (1-7); LYMPHOCYTES # (AUTO) 1.68 x10^3/uL (1-3.4); LYMPHOCYTES % (AUTO) 19 % (22-44); MD SCAN; MONOCYTES # (AUTO) 0.08 x10^3/uL (0.2-0.8); MONOCYTES % (AUTO) 1 % (2-9); NEUTROPHILS # (AUTO) 7.08 x10^3/uL (1.8-6.8); NEUTROPHILS % (AUTO) 78 % (42-75)
[2018-05-15] MEDS: LEVOTHYROXINE 50 MCG TABLET PO SCH (05:24)
[2018-05-15] MEDS: PANTOPRAZOLE 40 MG IV IVPush SCH ×2 (09:20→21:08)
[2018-05-15] MEDS: MIDODRINE 5 MG TABLET PO SCH ×3 (09:21→21:09)
[2018-05-15] MEDS: CHOLESTYRAMINE LIGHT 4GM PACKET PO SCH ×2 (09:22→21:09)
[2018-05-15] MEDS: SODIUM CHLORIDE FLUSH 10ML SYR IVF SCH ×2 (09:22→21:08)
[2018-05-15] MEDS: NYSTATIN CRM 15GM TP SCH ×3 (09:22→21:09)
[2018-05-15] MEDS: LINEZOLID PMX 600MG/300ML 300 ML IV SCH ×2 (09:22→21:08)
[2018-05-15] MEDS: OCTREOTIDE 50 MCG/ML, 1ML (0.05MG/ML) SQ SCH ×3 (09:23→21:09)
[2018-05-15] MEDS: LIDOCAINE 4% TOPICAL SOLUTION 50 ML TP PRN ×2 (09:57→13:58)
[2018-05-15] MEDS: ALBUMIN HUMAN 25% 100 ML IV SCH ×2 (11:55→22:54)
[2018-05-15] MEDS: SODIUM CHLORIDE 0.9% 1,000 ML IV SCH (16:32)
[2018-05-15] MEDS: FENTANYL PF 100 MCG/2ML IVPush PRN (23:43)
[2018-05-16] MEDS: INSULIN LISPRO 100 UNITS/ML, PEN SQ-INSULIN SCH ×4 (02:55→21:00)
[2018-05-16] MEDS: ALBUTEROL/IPRATROPIUM 2.5MG/0.5MG, 3 ML INLINE SCH ×6 (03:00→23:15)
[2018-05-16] MEDS: LEVOTHYROXINE 50 MCG TABLET PO SCH (03:59)
[2018-05-16 05:23] LABS: MEAN CORPUSCULAR HEMOGLOBIN 29.8 pg (27.0-34.8); MEAN CORPUSCULAR HGB CONC 34.6 g/dL (32.4-35.8); MEAN CORPUSCULAR VOLUME 86.3 fL (80-100); MEAN PLATELET VOLUME 9.9 fL (7.4-10.4); RED CELL DISTRIBUTION WIDTH 16.8 % (9.6-15.2)
[2018-05-16 05:25] LABS: PLATELET COUNT 15 x10^3/uL (130-400)
[2018-05-16 05:30] LABS: ALBUMIN 3.8 g/dL (3.4-5.0); ANION GAP 16 mmol/L (5-15); CALCIUM 9.3 mg/dL (8.5-10.1); CHLORIDE 100 mmol/L (98-107)
[2018-05-16 05:34] LABS: ALANINE AMINOTRANSFERASE 135 U/L (12-78); ALKALINE PHOSPHATASE 192 U/L (45-117); BILIRUBIN,TOTAL 11.8 mg/dL (0.2-1.0); CREATININE 0.94 mg/dL (0.55-1.02); TOTAL PROTEIN 5.1 g/dL (6.4-8.2)
[2018-05-16 05:44] LABS: BASOPHILS # (AUTO) 0.05 x10^3/uL (0-0.1); BASOPHILS % (AUTO) 1 % (0-1); EOSINOPHILS # (AUTO) 0.23 x10^3/uL (0-0.4); EOSINOPHILS % (AUTO) 4 % (1-7); LYMPHOCYTES # (AUTO) 1.78 x10^3/uL (1-3.4); LYMPHOCYTES % (AUTO) 34 % (22-44); MD SCAN; MONOCYTES # (AUTO) 0.14 x10^3/uL (0.2-0.8); MONOCYTES % (AUTO) 3 % (2-9); NEUTROPHILS # (AUTO) 3.05 x10^3/uL (1.8-6.8); NEUTROPHILS % (AUTO) 58 % (42-75)
[2018-05-16] MEDS: MIDODRINE 5 MG TABLET PO SCH ×3 (08:40→21:50)
[2018-05-16] MEDS: SODIUM CHLORIDE FLUSH 10ML SYR IVF SCH ×2 (08:41→21:50)
[2018-05-16] MEDS: NYSTATIN CRM 15GM TP SCH ×3 (08:41→21:51)
[2018-05-16] MEDS: OCTREOTIDE 50 MCG/ML, 1ML (0.05MG/ML) SQ SCH ×3 (08:41→21:52)
[2018-05-16] MEDS: DIPHENOXYLATE/ATROPINE TABLET PO PRN ×2 (08:41→15:35)
[2018-05-16] MEDS: NOREPINEPHRINE 4 MG in SODIUM CHLORIDE 0.9% 246 ML IV PRN ×2 (08:43→22:49)
[2018-05-16] MEDS: CHOLESTYRAMINE LIGHT 4GM PACKET PO SCH ×2 (11:10→23:33)
[2018-05-16] MEDS: ALBUMIN HUMAN 25% 100 ML IV SCH ×2 (11:11→23:33)
[2018-05-16] MEDS: FUROSEMIDE 20 MG/2 ML IV SCH ×2 (11:16→17:49)
[2018-05-16] MEDS: SODIUM CHLORIDE 0.9% 1,000 ML IV SCH (12:07)
[2018-05-16] MEDS: DOXYCYCLINE 50 MG/5 ML ORAL SUSP PO SCH ×2 (12:07→21:51)
[2018-05-16] MEDS: PANTOPRAZOLE 40 MG IV IVPush SCH (21:50)
[2018-05-17] MEDS: FUROSEMIDE 20 MG/2 ML IV SCH ×3 (01:49→17:36)
[2018-05-17] MEDS: ALBUTEROL/IPRATROPIUM 2.5MG/0.5MG, 3 ML INLINE SCH ×6 (02:40→22:18)
[2018-05-17] MEDS: INSULIN LISPRO 100 UNITS/ML, PEN SQ-INSULIN SCH ×4 (03:00→21:00)
[2018-05-17] MEDS: DEXTROSE 50%, 50ML SYRINGE IVPush PRN ×4 (03:20→22:41)
[2018-05-17] MEDS: LEVOTHYROXINE 50 MCG TABLET PO SCH (04:47)
[2018-05-17 05:08] LABS: MEAN CORPUSCULAR HEMOGLOBIN 29.8 pg (27.0-34.8); MEAN CORPUSCULAR HGB CONC 34.4 g/dL (32.4-35.8); MEAN CORPUSCULAR VOLUME 86.6 fL (80-100); RED BLOOD COUNT 2.87 x10^6/uL (3.82-5.3); RED CELL DISTRIBUTION WIDTH 16.1 % (9.6-15.2)
[2018-05-17 05:18] LABS: ANION GAP 24 mmol/L (5-15); CALCIUM 9.9 mg/dL (8.5-10.1); CHLORIDE 102 mmol/L (98-107)
[2018-05-17 05:20] LABS: CREATININE 1.05 mg/dL (0.55-1.02)
[2018-05-17 05:27] LABS: BASOPHILS # (AUTO) 0.04 x10^3/uL (0-0.1); BASOPHILS % (AUTO) 1 % (0-1); EOSINOPHILS # (AUTO) 0.17 x10^3/uL (0-0.4); EOSINOPHILS % (AUTO) 4 % (1-7); LYMPHOCYTES # (AUTO) 1.64 x10^3/uL (1-3.4); LYMPHOCYTES % (AUTO) 38 % (22-44); MD SCAN; MEAN PLATELET VOLUME 9.8 fL (7.4-10.4); MONOCYTES # (AUTO) 0.14 x10^3/uL (0.2-0.8); MONOCYTES % (AUTO) 3 % (2-9); NEUTROPHILS # (AUTO) 2.29 x10^3/uL (1.8-6.8); NEUTROPHILS % (AUTO) 53 % (42-75)
[2018-05-17 05:28] LABS: PLATELET COUNT 15 x10^3/uL (130-400)
[2018-05-17] MEDS: D5%-0.9% NACL 1,000 ML IV SCH (08:44)
[2018-05-17] MEDS: FENTANYL PF 100 MCG/2ML IVPush PRN ×2 (08:45→12:23)
[2018-05-17] MEDS: NYSTATIN CRM 15GM TP SCH ×3 (08:45→22:32)
[2018-05-17] MEDS: OCTREOTIDE 50 MCG/ML, 1ML (0.05MG/ML) SQ SCH ×3 (08:46→22:32)
[2018-05-17] MEDS: DOXYCYCLINE 50 MG/5 ML ORAL SUSP PO SCH ×2 (08:46→22:30)
[2018-05-17] MEDS: CHOLESTYRAMINE LIGHT 4GM PACKET PO SCH ×2 (08:57→22:30)
[2018-05-17] MEDS: SODIUM CHLORIDE FLUSH 10ML SYR IVF SCH ×2 (08:57→21:00)
[2018-05-17] MEDS: MIDODRINE 5 MG TABLET PO SCH ×3 (08:57→22:30)
[2018-05-17] MEDS: ALBUMIN HUMAN 25% 100 ML IV SCH ×2 (10:30→22:33)
[2018-05-17] MEDS: NOREPINEPHRINE 4 MG in SODIUM CHLORIDE 0.9% 246 ML IV PRN ×3 (10:31→22:44)
[2018-05-17] MEDS ORDERED: VASOPRESSIN 100 UNIT in SODIUM CHLORIDE 0.9% 495 ML IV PRN (15:30)
[2018-05-17] MEDS: MIDAZOLAM HCL 25 MG in SODIUM CHLORIDE 0.9% 245 ML IV PRN ×2 (15:55→22:44)
[2018-05-17] MEDS: PANTOPRAZOLE 40 MG IV IVPush SCH (22:30)
[2018-05-18] MEDS: ALBUTEROL/IPRATROPIUM 2.5MG/0.5MG, 3 ML INLINE SCH ×2 (02:48→06:30)
[2018-05-18] MEDS: INSULIN LISPRO 100 UNITS/ML, PEN SQ-INSULIN SCH ×2 (03:00→09:00)
[2018-05-18] MEDS: FUROSEMIDE 20 MG/2 ML IV SCH ×2 (03:29→10:00)
[2018-05-18] MEDS: NOREPINEPHRINE 4 MG in SODIUM CHLORIDE 0.9% 246 ML IV PRN (03:29)
[2018-05-18] MEDS: D5%-0.9% NACL 1,000 ML IV SCH (04:30)
[2018-05-18 05:09] LABS: ANION GAP 24 mmol/L (5-15); CHLORIDE 107 mmol/L (98-107)
[2018-05-18 05:10] LABS: CREATININE 1.07 mg/dL (0.55-1.02)
[2018-05-18 05:13] LABS: MEAN CORPUSCULAR HEMOGLOBIN 30.4 pg (27.0-34.8); MEAN CORPUSCULAR HGB CONC 34.6 g/dL (32.4-35.8); MEAN CORPUSCULAR VOLUME 88.1 fL (80-100); MEAN PLATELET VOLUME 10.1 fL (7.4-10.4); RED BLOOD COUNT 2.44 x10^6/uL (3.82-5.3); RED CELL DISTRIBUTION WIDTH 16.8 % (9.6-15.2)
[2018-05-18 05:17] LABS: PLATELET COUNT 14 x10^3/uL (130-400)
[2018-05-18 05:40] LABS: MD YES
[2018-05-18 05:43] LABS: ANISOCYTOSIS 1+; BAND#(MANUAL) 0.48 x10^3/uL; BANDS%(MANUAL) 10 % (0-7); BASOS#(MANUAL) 0.05 x10^3/uL (0-0.1); BASOS% (MANUAL) 1 % (0-1); EOS% (MANUAL) 2 % (1-7); LYMPH#(MANUAL) 2.11 x10^3/uL (1-3.4); LYMPHS% (MANUAL) 44 % (22-44); METAMYELOCYTES% (MANUAL) 2 % (0-1); SEG#(MANUAL) 1.97 x10^3/uL (1.8-6.8); SEGS% (MANUAL) 41 % (42-75)
[2018-05-18 05:45] LABS: <PLATELET ESTIMATE> DECREASED; <PLT MORPHOLOGY> NORMAL PLT MORPH; TOXIC GRAN 1+
[2018-05-18 05:46] LABS: SPHEROCYTES 1+
[2018-05-18 05:52] LABS: MICROCYTOSIS 1+
[2018-05-18] MEDS: LEVOTHYROXINE 50 MCG TABLET PO SCH (06:15)
[2018-05-18] MEDS: DOXYCYCLINE 50 MG/5 ML ORAL SUSP PO SCH (08:13)
[2018-05-18] MEDS: NYSTATIN CRM 15GM TP SCH (08:13)
[2018-05-18] MEDS: MIDAZOLAM HCL 25 MG in SODIUM CHLORIDE 0.9% 245 ML IV PRN (08:13)
[2018-05-18] MEDS: OCTREOTIDE 50 MCG/ML, 1ML (0.05MG/ML) SQ SCH (08:13)
[2018-05-18] MEDS: SODIUM CHLORIDE FLUSH 10ML SYR IVF SCH (08:13)
[2018-05-18] MEDS: MIDODRINE 5 MG TABLET PO SCH (08:57)
[2018-05-18] MEDS ORDERED: morphine SULFATE 10 MG/ML, 1ML IVPush PRN ×2 (10:00)
[2018-05-18] MEDS ORDERED: ATROPINE OPHTH SOLN 1%, 5ML PO PRN (10:00)
[2018-05-18] MEDS: ALBUMIN HUMAN 25% 100 ML IV SCH (10:30)
== END 2018-05-18 15:22 | disposition expired | DRG 870 ==
LOC: ED 11:14 → EDIP 13:05 → 5SO 14:02 → CCU 14:34
PROVIDERS: ADMIT Hospitalist; ATTEND Hospitalist
PROC: 0T9B70Z Drainage of Bladder with Drainage Device, Via Natural or Artificial Opening (ICD-10-PCS; 2018-04-30)
PROC: 02HV33Z Insertion of Infusion Device into Superior Vena Cava, Percutaneous Approach (ICD-10-PCS; 2018-05-01)
PROC: B548ZZA Ultrasonography of Superior Vena Cava, Guidance (ICD-10-PCS; 2018-05-01)
PROC: 0S9B3ZX Drainage of Left Hip Joint, Percutaneous Approach, Diagnostic (ICD-10-PCS; 2018-05-01)
PROC: 5A1955Z Respiratory Ventilation, Greater than 96 Consecutive Hours (ICD-10-PCS; principal; 2018-05-03)
PROC: 0BH17EZ Insertion of Endotracheal Airway into Trachea, Via Natural or Artificial Opening (ICD-10-PCS; 2018-05-03)
PROC: 30233R1 Transfusion of Nonautologous Platelets into Peripheral Vein, Percutaneous Approach (ICD-10-PCS; 2018-05-05)
PROC: 30233N1 Transfusion of Nonautologous Red Blood Cells into Peripheral Vein, Percutaneous Approach (ICD-10-PCS; 2018-05-05)
DX: A41.81 Sepsis due to Enterococcus (principal); E43 Unspecified severe protein-calorie malnutrition; J96.01 Acute respiratory failure with hypoxia; K72.00 Acute and subacute hepatic failure without coma; N17.0 Acute kidney failure with tubular necrosis; R65.21 Severe sepsis with septic shock; S73.005A Unspecified dislocation of left hip, initial encounter; B37.49 Other urogenital candidiasis; C64.9 Malignant neoplasm of unspecified kidney, except renal pelvis; C78.00 Secondary malignant neoplasm of unspecified lung; C79.51 Secondary malignant neoplasm of bone; D68.59 Other primary thrombophilia; E27.40 Unspecified adrenocortical insufficiency; E87.0 Hyperosmolality and hypernatremia; J81.1 Chronic pulmonary edema; N25.81 Secondary hyperparathyroidism of renal origin; Z99.11 Dependence on respirator [ventilator] status; K92.2 Gastrointestinal hemorrhage, unspecified; J98.11 Atelectasis; D64.9 Anemia, unspecified; D69.6 Thrombocytopenia, unspecified; E03.9 Hypothyroidism, unspecified; Z68.23 Body mass index [BMI] 23.0-23.9, adult; E55.9 Vitamin D deficiency, unspecified; E78.1 Pure hyperglyceridemia; E78.5 Hyperlipidemia, unspecified; E83.51 Hypocalcemia; E86.0 Dehydration; E86.1 Hypovolemia; E87.6 Hypokalemia; E87.70 Fluid overload, unspecified; F17.210 Nicotine dependence, cigarettes, uncomplicated; I10 Essential (primary) hypertension; K21.9 Gastro-esophageal reflux disease without esophagitis; K52.9 Noninfective gastroenteritis and colitis, unspecified; K76.0 Fatty (change of) liver, not elsewhere classified; L89.159 Pressure ulcer of sacral region, unspecified stage; L98.419 Non-pressure chronic ulcer of buttock with unspecified severity; T40.2X1A Poisoning by other opioids, accidental (unintentional), initial encounter; Z66 Do not resuscitate; Z79.01 Long term (current) use of anticoagulants; Z86.711 Personal history of pulmonary embolism; Z90.49 Acquired absence of other specified parts of digestive tract; Z90.5 Acquired absence of kidney; Z90.710 Acquired absence of both cervix and uterus; Z96.642 Presence of left artificial hip joint; Z88.8 Allergy status to other drugs, medicaments and biological substances; Z91.048 Other nonmedicinal substance allergy status; J44.9 Chronic obstructive pulmonary disease, unspecified; X58.XXXA Exposure to other specified factors, initial encounter; Y93.89 Activity, other specified; Y92.89 Other specified places as the place of occurrence of the external cause; Y99.8 Other external cause status; Z86.718 Personal history of other venous thrombosis and embolism; E11.9 Type 2 diabetes mellitus without complications; Z99.3 Dependence on wheelchair; Z79.4 Long term (current) use of insulin; Z79.899 Other long term (current) drug therapy
CPT/HCPCS: 36415; 36600; 74018; 87106; 87400; 99291; J7042; J7620; J7644; 20611; 70450; 71045; 74177; 76700; 76770; 76942; 80048; 80053; 80202; 80307; 80329; 81001; 82140; 82247; 82248; 82306; 82330; 82533; 82550; 82803; 82962; 83036; 83605; 83690; 83735; 83970; 84100; 84132; 84439; 84443; 84478; 84484; 85014; 85018; 85025; 85610; 85730; 85810; 86022; 86850; 86900; 86923; 87040; 87070; 87077; 87081; 87086; 87186; 87205; 87324; 89050; 89055; 89060; 93005; 93306; 93970; 94002; 94003; 94640; 96361; 96374; G0378; J0295; J0610; J2020; J2248; J2250; J2354; J2405; J2543; J2704; J3010; J3370; J3430; J3475; J3480; J7070; P9047; Q9967; C9113; G0480; J0330; J1450; J1610; J1720; J1815; J1940; J2270; J2765; J7030; J7040; J7050; P9016; P9035